=== PATIENT | male | born 1950 | race Caucasian/White ===

== ENCOUNTER 2017-01-08 10:30 | Outpatient (CLI) | payer BC ==
[2017-01-08 14:05] LABS: #Eosinphils 0.1 thou/uL (0.0-0.7); #Lymphocytes 1.5 thou/uL (1.20-3.40); #Monocytes 0.5 thou/uL (0.11-0.59); #Neutrophils 3.1 thou/uL (1.40-6.50); %Basophils 0.5 % (0.0-1.0); %Eosinophils 2.1 % (0.0-10.0); %Lymphocytes 28.3 % (21.0-51.0); %Monocytes 9.9 % (0.0-10.0); Hematocrit 42.3 % (42.0-52.0); Mean Platelet Volume 7.1 fL (7.4-10.4); Red Blood Cell (RBC) Count 4.49 mill/uL (4.70-6.10); White Blood Cell (WBC) Count 5.2 thou/uL (4.8-10.8)
[2017-01-08 14:13] LABS: PTT 27.1 SEC (22.9-36.1); Prothrombin Time 13.7 SEC (12.0-14.7)
[2017-01-08 14:32] LABS: ALT (SGPT) 33 U/L (8-55); AST (SGOT) 24 U/L (5-34); Alkaline Phosphatase 94 U/L (40-150); Anion Gap 14 mmol/L (10-20); BUN (Urea Nitrogen) 10 mg/dL (8.4-25.7); Bilirubin, Total 0.7 mg/dL (0.2-1.2); Calc. Creatinine Clearance 0 mL/min (70-130); Calcium 9.2 mg/dL (7.8-10.44); Carbon Dioxide 24 mmol/L (23-31); Chloride 103 mmol/L (98-107); Estimated GFR-MDRD Greater than 90; Globulin 3.1 g/dL (2.4-3.5); Protein, Total 7.4 g/dL (5.8-8.1)
== END 2017-01-08 10:31 | disposition home or self-care (01) ==
LOC: LABBT 10:30
PROVIDERS: ATTEND Surgery
DX: Z01.818 Encounter for other preprocedural examination (principal); K42.9 Umbilical hernia without obstruction or gangrene; N63.10 Unspecified lump in the right breast, unspecified quadrant
CPT/HCPCS: 80053; 85025; 85610; 85730; 93005; 93010

== ENCOUNTER 2017-04-27 08:24 | Emergency (ER) | payer BC | END 2017-04-27 09:51 | disposition home or self-care (01) | LOC: ERS 08:24 | DX: K20.9 Esophagitis, unspecified (principal); T43.225A Adverse effect of selective serotonin reuptake inhibitors, initial encounter; I10 Essential (primary) hypertension; F41.9 Anxiety disorder, unspecified; F43.10 Post-traumatic stress disorder, unspecified; Z79.82 Long term (current) use of aspirin; Z79.899 Other long term (current) drug therapy | CPT/HCPCS: 99282 ==

== ENCOUNTER 2018-03-25 06:45 | Outpatient (CLI) | payer BC ==
[2018-03-25 13:06] LABS: Hemoglobin 13.9 g/dL (14.0-18.0); Mean Corpuscular HGB CONC 35.2 g/dL (32.0-36.0); Mean Corpuscular Hemoglobin 33.6 pg (27.0-31.0); Mean Corpuscular Volume 95.4 fL (78.0-98.0); Mean Platelet Volume 7.1 fL (7.4-10.4); Platelet Count 229 thou/uL (130-400); RBC Distribution Width 11.1 % (11.5-14.5); Red Blood Cell (RBC) Count 4.14 mill/uL (4.70-6.10)
[2018-03-25 13:12] LABS: Platelet Count 229 thou/uL (130-400)
[2018-03-25 13:21] LABS: Anion Gap 14 mmol/L (10-20); BUN (Urea Nitrogen) 22 mg/dL (8.4-25.7); Calc. Creatinine Clearance 0 mL/min (70-130); Calcium 9.3 mg/dL (7.8-10.44); Carbon Dioxide 23 mmol/L (23-31); Chloride 105 mmol/L (98-107); Estimated GFR-MDRD Greater than 90; Glucose 99 mg/dL (80-115); Potassium 4.5 mmol/L (3.5-5.1); Sodium 137 mmol/L (136-145)
== END 2018-03-25 06:46 | disposition home or self-care (01) ==
LOC: LABBT 06:45
PROVIDERS: ATTEND Urology
DX: Z01.812 Encounter for preprocedural laboratory examination (principal)
CPT/HCPCS: 80048; 85027; 85576

== ENCOUNTER 2018-03-26 06:11 | Day surgery (SDC) | payer BC ==
[2018-03-25 12:10] VITALS: BMI 36.1
[2018-03-26] MEDS ORDERED: Fentanyl 100 MCG/2 ML VIAL ONE ×2 (06:48→10:05)
[2018-03-26] MEDS ORDERED: Famotidine/PF 20 mg/2ml Vial ONE (06:48)
[2018-03-26] MEDS ORDERED: Iothalamate Meglumine 60% 50 ML VIAL FS ONE (06:55)
--- NOTE | 2018-03-26 07:53 | RAD ---
KUB: HISTORY: Abdominal pain. COMPARISON: 03/27/2018 study. FINDINGS: The bowel gas pattern appears nonobstructive. Calcifications within the pelvis appear stable. A maria isabel cific density just to the right of the L4 vertebral body is seen which could represent a ureteral maria isabel culus. Slightly lower in position on the previous exam. IMPRESSION: Calculus directly to the right of the mid portion of the L4 vertebral slightly lower in position than on the prior exam, possibly a ureteral calculus. POS: BAKARI
[2018-03-26] MEDS ORDERED: Ketorolac Tromethamine 30 MG/ML VIAL ONE ×2 (10:04→15:35)
--- NOTE | 2018-03-26 12:34 | OP ---
DATE OF PROCEDURE: 03/26/2018 PREOPERATIVE DIAGNOSIS: Right ureteral stone. POSTOPERATIVE DIAGNOSIS: Right ureteral stone. PROCEDURES PERFORMED: Right extracorporeal shock wave lithotripsy, cysto,and right retrograde. ANESTHETIC: General. EBL: Not recorded. FINDINGS: There was a 5 to 6 mm right midureteral stone treated with 2000 shocks at level 6. It appeared to fragment well and was treated from anterior direction as we could not get it to be placed in treatment focal point from a posterior direction. The stone did appear to fragment well the number of fragments at the site, so because we treated this and had partial fragmentation number of weeks ago and he had passed the larger fragment, we went ahead and placed him and did a cysto and retrograde. There were no sizable fragments related remaining when we shot contrast by it. They just all spread out and he had no evidence of obstruction across this and we could see some small fragments actually effluxing out the right ureter, so a stent was not placed. DESCRIPTION OF PROCEDURE: After obtaining written and verbal consent from the patient after receiving IV antibiotics, Ancef, he was taken to the operating suite. He was placed in supine position on the treatment table. PlexiPulses placed in his lower extremities and turned on. He was given a general anesthetic and oral obturator intubation. The stone, which was seen on his preoperative KUB was seen with the fluoroscopy unit. We initially attempted to treat him posteriorly, but we could not get the stone in treatment focal point, so we flipped the head and treated from the front. The stones easily placed in treatment focal point. Shockwave therapy was commenced and brought up to 6 KV with being a ureteral stone. No pause was given. After the stone did appear to start fragmenting after a few 100 shocks and by about 3000 shocks, there was really just a number of small, what appeared to be small fragments remaining. Because this was a retreatment and we wanted to be sure that we had done a good job with this and had a stent that was needed for ureteroscopy. We went ahead and placed in the dorsal lithotomy position, sterilely prepped and draped for cystoscopy. This was performed with a 22-New Zealander sheath. It was passed well lubricated under direct vision through the midurethra and into the urinary bladder with a 30 degree lens and video camera and monitor. The bladder had some blood effluxing from the right ureteral orifice that was filled and emptied a couple of times. A 5-New Zealander Pollack catheter was placed in the right ureteral orifice and under fluoroscopic guidance placed just below, where the stone fragments were. We injected contrast, which went by this easily and spread these out over probably 3 or 4 cm area. The contrast quickly came back across this without obstruction. We did this 2 or 3 times, removed the open-ended catheter and then watching the contrast, has out the distal ureter with some stone fragments in it without any evidence of obstruction. For this reason, the stent was not placed. The bladder was drained. The instruments were removed. He was taken out of the dorsal lithotomy position. He was awakened and extubated and taken by stephen to the recovery room. Job ID: [id number]
[2018-03-26] MEDS ORDERED: Lidocaine 1% PF 5 ML VIAL ONE (15:35)
[2018-03-26] MEDS ORDERED: PHENYLEPHRINE-NS 100 MCG/ML 10 ML SYRINGE ONE (15:35)
[2018-03-26] MEDS ORDERED: Ondansetron PF 4 MG/2 ML Vial ONE (15:35)
[2018-03-26] MEDS ORDERED: ePHEDrine/0.9% NaCl/PF SYRINGE 50 mg/10 ml ONE (15:35)
[2018-03-26] MEDS ORDERED: PROPOFOL 200 MG/20 ML VIAL ONE (15:35)
== END 2018-03-26 11:10 | disposition home or self-care (01) ==
LOC: SDC 06:11
PROVIDERS: ATTEND Urology
PROC: BT1D1ZZ Fluoroscopy of Right Kidney, Ureter and Bladder using Low Osmolar Contrast (ICD-10-PCS; principal; 2018-03-26)
PROC: 0TJB8ZZ Inspection of Bladder, Via Natural or Artificial Opening Endoscopic (ICD-10-PCS; principal; 2018-03-26)
PROC: 0TF6XZZ Fragmentation in Right Ureter, External Approach (ICD-10-PCS; principal; 2018-03-26)
DX: N20.1 Calculus of ureter (principal); E20.9 Hypoparathyroidism, unspecified; F41.9 Anxiety disorder, unspecified; K21.9 Gastro-esophageal reflux disease without esophagitis; I10 Essential (primary) hypertension; Z86.73 Personal history of transient ischemic attack (TIA), and cerebral infarction without residual deficits; Z79.82 Long term (current) use of aspirin; Z79.899 Other long term (current) drug therapy
CPT/HCPCS: 74018; C1758; J0131; J1885; J2001; J2405; J2704; J3010; Q9961; S0028

== ENCOUNTER 2018-08-21 01:51 | Outpatient (CLI) | payer MEDICARE, BC ==
[2018-08-21 16:09] LABS: #Eosinphils 0.1 thou/uL (0.0-0.7); #Lymphocytes 1.5 thou/uL (1.20-3.40); #Monocytes 0.6 thou/uL (0.11-0.59); #Neutrophils 3.2 thou/uL (1.40-6.50); %Basophils 0.6 % (0.0-1.0); %Lymphocytes 28.4 % (21.0-51.0); %Monocytes 10.2 % (0.0-10.0); %Neutrophils 58.7 % (42.0-75.0); Hemoglobin 13.2 g/dL (14.0-18.0); Mean Corpuscular HGB CONC 33.7 g/dL (32.0-36.0); Mean Corpuscular Volume 94.9 fL (78.0-98.0); Platelet Count 273 thou/uL (130-400); RBC Distribution Width 11.7 % (11.5-14.5); Red Blood Cell (RBC) Count 4.13 mill/uL (4.70-6.10); White Blood Cell (WBC) Count 5.4 thou/uL (4.8-10.8)
[2018-08-21 16:15] LABS: Prothrombin Time 13.4 SEC (12.0-14.7)
[2018-08-21 16:33] LABS: Anion Gap 13 mmol/L (10-20); BUN (Urea Nitrogen) 20 mg/dL (8.4-25.7); Calc. Creatinine Clearance 0 mL/min (70-130); Calcium 9.4 mg/dL (7.8-10.44); Carbon Dioxide 25 mmol/L (23-31); Chloride 102 mmol/L (98-107); Estimated GFR-MDRD Greater than 90; Glucose 116 mg/dL (80-115); Potassium 3.8 mmol/L (3.5-5.1); Sodium 136 mmol/L (136-145)
--- NOTE | 2018-08-22 21:25 | EKG ---
Test Reason : Blood Pressure : / mmHG Vent. Rate : 065 BPM Atrial Rate : 065 BPM P-R Int : 180 ms QRS Dur : 126 ms QT Int : 440 ms P-R-T Axes : 050 -57 003 degrees QTc Int : 457 ms Normal sinus rhythm Right bundle branch block Left anterior fascicular block Bifascicular block Left ventricular hypertrophy with QRS widening Cannot rule out Septal infarct , age undetermined Abnormal ECG When compared with ECG of 22-SEP-2016 09:55, Minimal criteria for Septal infarct are now Present Confirmed by Grisel BUTT ([id number]) on 08/22/2018 9:24:34 PM Referred By: TREY Confirmed By:Grisel BUTT
== END 2018-08-21 01:52 | disposition home or self-care (01) ==
LOC: LABBT 01:51
PROVIDERS: ATTEND Orthopaedic Surgery
DX: Z01.818 Encounter for other preprocedural examination (principal); M16.11 Unilateral primary osteoarthritis, right hip
CPT/HCPCS: 80048; 85025; 85610; 86850; 86900; 86901; 87081; 93005; 93010

== ENCOUNTER 2018-08-21 15:15 | Inpatient (IN) | payer MEDICARE, BC ==
--- NOTE | 2018-08-21 09:31 | HP ---
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 His groin pain, which radiates towards his knee and leg. He has pain with change of position with walking. He also has some low back pain and has had some relief with injections of his low back. He also obtained significant improvement after injection of his hip joint by Dr. Sandoval. His back pain is improved, but he continues to have progressive right hip pain, which is interfering with day-to-day activities including walking, getting dressed, and sleeping. A partial relief with anti-inflammatory medications. PAST MEDICAL HISTORY: The patient has history of a TIA in 2012. He has had previous total knee replacement. Approximately 3 weeks ago, the patient fell and sustained a left 5th metacarpal fracture, treated with a splint. He also has a history of hypertension, thyroid replacement, and gout. CURRENT MEDICATIONS: Include; 1. Levothyroxine. 2. Amlodipine. 3. Low-dose aspirin. 4. Lipitor. 5. Fluoxetine. 6. Lisinopril. 7. Omeprazole. 8. Prazosin. 9. Spironolactone. 10. Flomax. 11. Tylenol with Codeine. ALLERGIES: HE HAS NO KNOWN ALLERGIES. FAMILY HISTORY: Otherwise, unremarkable. SOCIAL HISTORY: Otherwise, unremarkable. REVIEW OF SYSTEMS: Otherwise, unremarkable. PHYSICAL EXAMINATION: GENERAL: Reveals a healthy male. HEENT: Unremarkable. NECK: Supple. CHEST: Clear. HEART: Regular rate and rhythm. ABDOMEN: Soft and nontender. PELVIC: Deferred. RECTAL: Deferred. GENITAL: Deferred. EXTREMITIES: Pertinent findings related to the right hip, his leg lengths were equal. He has tenderness over the anterior hip, some tenderness over the posterior hip and sciatic notch. There is decreased range of motion of the right hip and groin pain with internal rotation of the hip. He has a slight right antalgic gait. He walks well with a cane. NEUROVASCULAR: Intact. DIAGNOSTIC STUDIES: X-rays of the right hip reveal severe DJD in narrowing with essentially no joint space remaining and definite progression from previous x-rays. MRI scan of the right hip reveals severe degenerative arthritis. Previous MRI scan of the lumbar spine reveals diffuse degenerative changes and jhnbozcd-ka-uzinus spinal stenosis at L4-L5 and tkhw-um-kgejilyx changes at L5-S1. IMPRESSION: 1. Degenerative arthritis, right hip. 2. Lumbar spondylosis. 3. History of hypertension. 4. History of thyroid replacement. 5. Previous left total knee replacement. PLAN: Right total hip replacement. The nature of the surgery, length of recovery, and potential complications such as infection, loss of motion, incomplete relief, neurovascular injury, thromboembolic phenomena, leg-length discrepancy, possible transfusion, and need for revision have been discussed in detail. Job ID: [id number]
[2018-08-21 13:21] VITALS: BMI 39.9
[2018-08-27] MEDS ORDERED: Midazolam HCl 2 mg/2 ml Vial ONE (07:39)
[2018-08-27] MEDS ORDERED: Fentanyl 100 MCG/2 ML VIAL ONE ×3 (07:39→12:35)
[2018-08-27] MEDS ORDERED: Tranexamic Acid 1,000 MG/10 ML VIAL ONE ×2 (07:42→12:46)
[2018-08-27] MEDS ORDERED: Sodium Chloride 0.9% 100 ML ONE (07:43)
[2018-08-27] MEDS ORDERED: Vancomycin HCl 1.5 GM in Sodium Chloride 0.9% 250 ML 300 ML IVPB SCH ×2 (08:00→21:00)
[2018-08-27] MEDS ORDERED: CEFAZOLIN 2 GM in Premix Bag 1 BAG IVPB SCH (08:00)
[2018-08-27] MEDS ORDERED: Tranexamic Acid 1,000 MG in Sodium Chloride 0.9% 100 ML IVPB SCH ×3 (08:00→13:50)
[2018-08-27] MEDS ORDERED: Acetaminophen 500 MG TAB PO PRN ×2 (09:29→14:44)
[2018-08-27] MEDS ORDERED: Zolpidem Tartrate 5 MG TAB PO PRN ×3 (09:30→14:45)
[2018-08-27] MEDS ORDERED: HYDROcodone/Acetaminophen 5/325 mg Tablet PO PRN ×4 (09:30→14:45)
[2018-08-27] MEDS ORDERED: traMADol HCl 50 MG TAB PO PRN ×5 (09:30→14:45)
[2018-08-27] MEDS ORDERED: Hydrocerin (Eucerin) Cream 120 gm Jar TOP PRN ×2 (09:30→14:45)
[2018-08-27] MEDS ORDERED: diphenhydrAMINE 25 MG CAP PO PRN ×3 (09:30→14:45)
[2018-08-27] MEDS ORDERED: Ondansetron PF 4 MG/2 ML Vial IVP PRN ×3 (09:30→14:45)
[2018-08-27] MEDS ORDERED: Ketorolac Tromethamine 30 MG/ML VIAL IVP PRN ×2 (09:30→14:45)
[2018-08-27] MEDS ORDERED: Naloxone HCl 0.4 mg/ml Vial IV PRN ×2 (09:30→14:45)
[2018-08-27] MEDS ORDERED: fentaNYL Citrate/PF 500 MCG, Bupivacaine 10 ML in Sodium Chloride 0.9% 80 ML EPIDURAL SCH ×2 (09:30→14:45)
[2018-08-27] MEDS ORDERED: Naloxone HCl 0.4 mg/ml Vial IVP PRN ×2 (09:30→14:45)
[2018-08-27] MEDS ORDERED: Bupivacaine 0.25% 10 ML VIAL EPIDURAL PRN ×2 (09:30→14:45)
[2018-08-27] MEDS ORDERED: diphenhydrAMINE 50 MG/ML VIAL IVP PRN ×2 (09:30→14:45)
[2018-08-27] MEDS ORDERED: Promethazine HCl 25 MG/ML VIAL IM PRN ×2 (09:30→14:45)
[2018-08-27] MEDS ORDERED: diphenhydrAMINE 50 MG/ML VIAL IM PRN ×2 (09:30→14:45)
[2018-08-27] MEDS ORDERED: Promethazine HCl 25 MG SUPP PR PRN ×2 (09:30→14:45)
[2018-08-27] MEDS ORDERED: Bupivacaine/Epinephrine 0.25% 30 ML VIAL ONE (09:33)
--- NOTE | 2018-08-27 12:10 | OP ---
DATE OF PROCEDURE: 08/27/2018 This is Gerald Ndiaye PA-C dictating a report for Og Agosto MD. PREOPERATIVE DIAGNOSIS: End-stage bicompartmental osteoarthritis, right hip. POSTOPERATIVE DIAGNOSIS: End-stage bicompartmental osteoarthritis, right hip. PROCEDURE PERFORMED: Press-fit right total hip arthroplasty. SURGEON: Og Agosto MD SUPERVISOR STRIPPING: Gerald Ndiyae PA-C. ANESTHESIA: General via endotracheal tube augmented with indwelling epidural. COMPONENTS USED: [employer] Accolade 11, size 4 press-fit hip stem with a size 54 mm Trident PSL press-fit acetabular shell, 36 mm 10-degree polyethylene fixed-bearing insert, and a ceramic V40 femoral head with a neutral offset. FINDINGS: End-stage severe degenerative bicompartmental disease, lxzx-hd-owdo arthrosis, periarticular osteophyte formation, large serous effusion, hypertrophic synovium and capsule. ESTIMATED BLOOD LOSS: 300. INPUT: 900 mL of LR. OUTPUT: 200 mL of clear yellow urine. DRAINS: None. SPECIMENS: None. COMPLICATIONS: None. COUNTS: Correct. INDICATION FOR SURGERY: Carlos is a 67-year-old white male, who has had progressive right hip, groin, and thigh pain and problem with standing and walking for the last 5 to 7 years. He has failed conservative management and elected to proceed with total hip arthroplasty as definitive treatment of his pain. PROCEDURE IN DETAIL: After informed consent was obtained in the preoperative holding area, the patient was taken to the operative suite where general anesthesia was induced. The patient was then positioned in the lateral decubitus position. The hip was then prepped and draped in usual sterile fashion. The patient received preoperative antibiotics. Prior to incision, time-out was called and all members of the surgical team agreed upon site, surgeon, and patient. After this, a longitudinal incision was made directly over the trochanter, noted by palpation extending 2 fingerbreadths above and below the trochanter. The deeper subcutaneous layer was undermined with Bovie electrocautery. The iliotibial band was encountered and incised sharply and the plane below this was developed bluntly. A Charnley retractor was placed to hold this opened. The lateral aspect of the trochanter and the abductor muscles were encountered and then reflected anteriorly off the trochanter using Bovie electrocautery. Once this was completed, the anterior capsule was then encountered and identified and copious capsulotomy was carried out, exposing the femoral neck and head. Dislocation maneuver was then performed and an in situ provisional neck cut was then made using the oscillating saw. Attention was then turned to acetabular preparation. Sequential reaming was carried out up to the appropriate diameter and a trial was then malleted into place with good firm resistance and no pullout. The permanent acetabular shell was then malleted squarely into place, as was the appropriate liner. Once completed, the wound was copiously irrigated and attention was then turned to femoral preparation. Flexion and external rotation were performed of the exposed thigh and femoral elevators were then placed at the proximal aspect of the wound. Canal finder was used to establish the length of the canal and sequential reaming was carried out, followed by broaching. Once the appropriate stability was established with the trial broaches with flexion, extension and rotational stability, we did trial with neutral and 2 mm offset incremental necks. Once the appropriate size was decided upon, with good stability noted with flexion, extension, internal and external rotation and shuck being negative, we removed the femoral trial broach and malletted into place the permanent prosthesis with good firm fit, which was also stable to rotation. Again, the hip felt very stable to flexion, extension, internal and external rotation. Leg lengths appeared near anatomic clinically and we were quite happy with prosthesis placement. Copious irrigation was then carried out through the entirety of the wound. Primary closure of the abductors was accomplished with interrupted #2 Vicryl [id number]-yt-lwhyh stitches and the IT band was then closed with interrupted #2 Vicryl, oversewn with a #2 running barbed Quill stitch. Subcutaneous fascia was closed with running barbed Quill stitch and a subcuticular Monocryl barbed Quill stitch was used for skin closure and augmented with skin cement. A sterile dressing was applied. The procedure was terminated without any complication. All counts were correct. The patient was awakened in the operative suite and taken to the recovery room in stable condition. Job ID: [id number]
[2018-08-27] MEDS ORDERED: Promethazine HCl 25 MG/ML VIAL SLOW IVP PRN (13:50)
[2018-08-27] MEDS ORDERED: Fentanyl 100 MCG/2 ML VIAL SLOW IVP PRN ×2 (13:50)
[2018-08-27] MEDS ORDERED: Acetaminophen 325 MG TAB PO PRN (13:50)
[2018-08-27] MEDS ORDERED: HYDROcodone/Acetaminophen 10/325 mg Tablet PO PRN ×2 (13:50)
--- NOTE | 2018-08-27 14:15 | RAD ---
RIGHT HIP TWO VIEWS: 08/27/18 HISTORY: Right hip replacement, osteoarthritis of the right knee. FINDINGS/IMPRESSION: Two spot fluoroscopic intraoperative images of the right hip demonstrates postop changes of total hip arthroplasty in good position and alignment. POS: BAKARI
[2018-08-27] MEDS ORDERED: Dexamethasone 20 MG/5 ML VIAL ONE (15:05)
[2018-08-27] MEDS ORDERED: Glycopyrrolate 0.2 MG/ML 5 ML SYRINGE ONE (15:05)
[2018-08-27] MEDS ORDERED: Ondansetron PF 4 MG/2 ML Vial ONE (15:05)
[2018-08-27] MEDS ORDERED: ePHEDrine 50 MG/ML VIAL ONE (15:05)
[2018-08-27] MEDS ORDERED: Lidocaine 1% PF 5 ML VIAL ONE (15:05)
[2018-08-27] MEDS ORDERED: PROPOFOL 200 MG/20 ML VIAL ONE (15:05)
[2018-08-27] MEDS ORDERED: Rocuronium Bromide 10 MG/ML (10ML VIAL) ONE (15:05)
[2018-08-27] MEDS: Sodium Chloride 0.9% 1,000 ML IV SCH (17:09)
[2018-08-27] MEDS: CEFAZOLIN 2 GM in Premix Bag 1 BAG IVPB SCH (17:09)
[2018-08-27] MEDS ORDERED: Ketorolac Tromethamine 30 MG/ML VIAL IVP SCH (18:00)
[2018-08-27] MEDS ORDERED: Acetaminophen 500 MG TAB ONE (22:25)
[2018-08-28] MEDS ORDERED: traMADol HCl 50 MG TAB ONE (03:48)
[2018-08-28] MEDS ORDERED: Levothyroxine Sodium 50 MCG TAB ONE (05:14)
--- NOTE | 2018-08-28 08:27 | CON ---
DATE OF CONSULTATION: 08/27/2018 REASON FOR CONSULTATION: Medical management. TIME OF EVALUATION: 8:30 pm. HISTORY OF PRESENT ILLNESS: Mr. Weinstein is a very pleasant 67-year-old male with past medical history significant for severe osteoarthritis, hypertension, hypothyroidism, history of TIA, who presented to the hospital for elective right total hip arthroplasty with Dr. Agosto. He underwent successful procedure today and is seen postoperatively up on the floor. Hospitalist Service has been consulted for medical management of the patient. The patient has no complaints at this time. He denies chest pain or shortness of breath. He has no postoperative pain. He has already ambulated 290 feet with physical therapy. No complaints at this time. REVIEW OF SYSTEMS: A 12-point review of systems performed and is negative except that stated above. ALLERGIES: NO KNOWN DRUG ALLERGIES. HOME MEDICATIONS: 1. Amlodipine 10 mg one tablet daily. 2. Aspirin 325 mg tablet one tablet daily. 3. Atorvastatin 20 mg tablet, half tablet q.p.m. 4. Diclofenac 1% topical gel p.r.n. for joint pain. 5. Fluoxetine 20 mg capsule 3 capsules daily. 6. Levothyroxine 0.05 mg tablet one tablet daily. 7. Omeprazole 20 mg capsule one capsule daily prior to meal. 8. Prazosin 2 mg capsule one capsule by mouth at bedtime p.r.n. 9. Spironolactone 25 mg tablet one tablet daily. 10. Tamsulosin 0.4 mg capsule one capsule daily. 11. Trazodone 50 mg q.p.m. p.r.n. as needed for sleep. PAST MEDICAL HISTORY: Nephrolithiasis, status post lithotripsy. Hyperparathyroidism, status post resection. Gout, hypertension, anxiety, depression. Osteoarthritis, status post left total knee replacement. PAST SURGICAL HISTORY: Cervical spinal fusion, hernia repair x2, breast biopsy on 01/10/2017, total right hip with Dr. Agosto today. FAMILY HISTORY: Noncontributory. SOCIAL HISTORY: The patient is a nonsmoker. He denies any alcohol or drug use. 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 PHYSICAL EXAMINATION: VITAL SIGNS: Temperature 99.1, pulse 101, respirations 18, O2 saturation 94% on room air, blood pressure is 124/76. GENERAL: The patient is a moderately obese male, resting comfortably in bed, in no acute distress. HEENT: Head is atraumatic and normocephalic. Mucous membranes are moist. NECK: Supple. Trachea is midline. No obvious JVD. CV: S1 and S2. No appreciable murmurs, rubs, or gallops. Regular rhythm. LUNGS: Regular respiratory rate and pattern, overall clear to auscultation bilaterally. ABDOMEN: Positive bowel sounds. Obese, soft, no masses. EXTREMITIES: Trace edema bilaterally. NEUROLOGIC: Cranial nerves 2 through 12 are grossly intact. The patient is nonfocal. MUSCULOSKELETAL: The patient's incision is dressed, dressing is dry. The patient has no obvious oozing. He can move both extremities, but has pain with movement . LABORATORY DATA: White blood cell count 5.4, hemoglobin 13.3, hematocrit 39.3, platelet count 603. Urinalysis negative. Sodium 136, potassium 3.8, chloride 102, carbon dioxide 25, anion gap 13, creatinine 0.8. ASSESSMENT: 1. Status post right total hip arthroplasty with Dr. Agosto. 2. Hypertension. 3. Hypothyroidism. 4. BPH. 5. Anxiety and depression. 6. Chronic peripheral edema/normal EF. PLAN: At this time, we will continue the patient's home medications. We will monitor his blood pressure closely. Continue prophylactic antibiotics per Dr. Agosto. Continue aggressive physical therapy. Continue supportive care and antiemetics as needed. We will continue to follow. Job ID: [id number]
[2018-08-28] MEDS ORDERED: Loperamide HCl 2 MG CAP PO PRN (08:38)
[2018-08-28] MEDS ORDERED: Cepastat Lozenges 1 LOZ PO PRN (08:38)
[2018-08-28] MEDS ORDERED: Calcium Carbonate 500 MG ChewTAB PO PRN (08:38)
[2018-08-28] MEDS ORDERED: Sodium Chloride 0.65% Nasal 44 ML BOT EA NARE PRN (08:38)
[2018-08-28] MEDS ORDERED: hydrALAZINE 20 MG/ML VIAL SLOW IVP PRN (08:38)
[2018-08-28] MEDS ORDERED: Diabetic Tussin 200 MG/10 ML UDCUP PO PRN (08:38)
[2018-08-28] MEDS ORDERED: Bisacodyl 10 MG SUPP PR PRN (08:38)
[2018-08-28] MEDS ORDERED: Ondansetron ODT 4 MG TAB SL PRN (08:38)
[2018-08-28] MEDS ORDERED: Enoxaparin Sodium 40 MG/0.4 ML SYRINGE SC SCH (09:00)
[2018-08-28] MEDS: Senokot S 8.6-50 MG TAB PO SCH ×3 (09:14→21:26)
[2018-08-28] MEDS: Ferrous Gluconate 324 MG TAB PO SCH ×3 (09:14→21:26)
[2018-08-28] MEDS: Aspirin 81 mg Enteric Coated Tablet PO SCH ×3 (09:14→21:27)
[2018-08-28] MEDS: Lisinopril 20 MG TAB PO SCH (09:22)
[2018-08-28] MEDS: Multivitamin W/ Minerals 1 TAB PO SCH (09:22)
[2018-08-28] MEDS: Amlodipine 10 MG TAB PO SCH (09:23)
[2018-08-28] MEDS: Tamsulosin HCl 0.4 MG CAP PO SCH (09:23)
[2018-08-28] MEDS: DULoxetine 30 MG CAP PO SCH (09:23)
--- NOTE | 2018-08-28 11:39 | PDOC.PN ---
- Subjective Encounter Start Date: 08/28/18 Encounter Start Time: 08:00 -: old records requested/rev Patient seen and examined. No new complaints. No overnight events his pain controlled, he has epidural in place, last night o2 sta was low, so oxygen started, he denies cough, chest pain - Objective Resuscitation Status - Order Detail: 08/28/18 08:37 Resuscitation Status Routine Resuscitation Status: FULL: Full Resuscitation MAR Reviewed: Yes Vital Signs & Weight: Vital Signs (12 hours) Pulse BP 08/28/18 09:23 93 141/73 H 08/28/18 09:22 141/73 H Weight Weight 247 lb Additional Labs: old labs reviewed Phys Exam - Physical Examination Constitutional: NAD HEENT: PERRLA, moist MMs, sclera anicteric Neck: no JVD, supple Respiratory: no wheezing, no rales, no rhonchi Cardiovascular: RRR, no significant murmur, no rub Gastrointestinal: soft, non-tender, no distention, positive bowel sounds Musculoskeletal: no edema, pulses present Neurological: non-focal, normal sensation, moves all 4 limbs Lymphatic: no nodes Psychiatric: normal affect, A&O x 3 Skin: no rash, normal turgor Dx/Plan (1) Status post right hip replacement Code(s): Z96.641 - PRESENCE OF RIGHT ARTIFICIAL HIP JOINT Status: Acute (2) Anxiety and depression Code(s): F41.9 - ANXIETY DISORDER, UNSPECIFIED; F32.9 - MAJOR DEPRESSIVE DISORDER, SINGLE EPISODE, UNSPECIFIED Status: Chronic (3) Dyslipidemia Code(s): E78.5 - HYPERLIPIDEMIA, UNSPECIFIED Status: Chronic (4) Hypertension Code(s): I10 - ESSENTIAL (PRIMARY) HYPERTENSION Status: Chronic (5) Hypothyroidism Code(s): E03.9 - HYPOTHYROIDISM, UNSPECIFIED Status: Chronic (6) Obesity (BMI 30-39.9) Code(s): E66.9 - OBESITY, UNSPECIFIED Status: Chronic (7) BPH (benign prostatic hyperplasia) Code(s): N40.0 - BENIGN PROSTATIC HYPERPLASIA WITHOUT LOWER URINRY TRACT SYMP Status: Chronic (8) GERD (gastroesophageal reflux disease) Code(s): K21.9 - GASTRO-ESOPHAGEAL REFLUX DISEASE WITHOUT ESOPHAGITIS Status: Chronic (9) Hypothyroidism Code(s): E03.9 - HYPOTHYROIDISM, UNSPECIFIED Status: Chronic - Plan cont current plan of care, PT/OT * continue aspirin for DVT prophylaxis * home medication has been started * will hold BP meds for SBP <120 * code status- full code * medication reviewed as below * symptomatic treatment * will monitor oxygen saturation * epidural as per anesthesia. Review of Systems - Review of Systems ENT: negative: Ear Pain, Ear Discharge, Nose Pain, Nose Discharge, Nose Congestion, Mouth Pain, Mouth Swelling, Throat Pain, Throat Swelling, Other Respiratory: negative: Cough, Dry, Shortness of Breath, Hemoptysis, SOB with Excertion, Pleuritic Pain, Sputum, Wheezing Cardiovascular: negative: chest pain, palpitations, orthopnea, paroxysmal nocturnal dyspnea, edema, light headedness, other Gastrointestinal: negative: Nausea, Vomiting, Abdominal Pain, Diarrhea, Constipation, Melena, Hematochezia, Other Genitourinary: negative: Dysuria, Frequency, Incontinence, Hematuria, Retention , Other Musculoskeletal: negative: Neck Pain, Shoulder Pain, Arm Pain, Back Pain, Hand Pain, Leg Pain, Foot Pain, Other - Medications/Allergies Allergies/Adverse Reactions: Allergies Allergy/AdvReac Type Severity Reaction Status Date / Time No Known Drug Allergies Allergy Verified 03/25/18 12:10 Medications: Current Medications Acetaminophen (Tylenol) 1,000 mg PO Q6H PRN PRN Reason: FEVER AND PAIN Hydrocodone Bitart/Acetaminophen ([place] 5/325) 1 tab PO Q4H PRN PRN Reason: Mild Pain 1-3 Hydrocodone Bitart/Acetaminophen ([place] 5/325) 2 tab PO Q4H PRN PRN Reason: For Moderate Pain 4-6 Amlodipine Besylate (Norvasc) 10 mg PO DAILY [facility] Last Admin: 08/28/18 09:23 Dose: 10 mg Aspirin (Ecotrin) 81 mg PO BID [facility] Last Admin: 08/28/18 09:14 Dose: 81 mg Atorvastatin Calcium (Lipitor) 10 mg PO HS [facility] Bisacodyl (Dulcolax) 10 mg OK DAILYPRN PRN PRN Reason: Constipation Calcium Carbonate (Tums) 1,000 mg PO Q4H PRN PRN Reason: Heartburn or Indigestion Diphenhydramine HCl (Benadryl) 25 mg PO Q3H PRN PRN Reason: Itching Diphenhydramine HCl (Benadryl) 25 mg IM Q3H PRN PRN Reason: Itching Diphenhydramine HCl (Benadryl) 25 mg IVP Q3H PRN PRN Reason: Itching Duloxetine HCl (Cymbalta) 30 mg PO DAILY [facility] Last Admin: 08/28/18 09:23 Dose: 30 mg Emollient Cream (Hydrocerin Cream) 0 gm TOP PRN PRN PRN Reason: Itching Enoxaparin Sodium (Lovenox) 40 mg SC 2100 [facility] Ferrous Gluconate (Fergon) 324 mg PO BID [facility] Last Admin: 08/28/18 09:14 Dose: 324 mg Guaifenesin (Robitussin Sf) 200 mg PO Q4H PRN PRN Reason: Cough Hydralazine HCl (Apresoline) 10 mg SLOW IVP Q4H PRN PRN Reason: SBP > 180 and HR < 70 Sodium Chloride (Normal Saline 0.9%) 1,000 mls @ 100 mls/hr IV .Q10H [facility] Last Admin: 08/27/18 17:09 Dose: 1,000 mls Fentanyl Citrate 500 mcg/Bupivacaine HCl 10 ml/ Sodium Chloride 100 mls @ 7.5 mls/hr EPIDURAL INF [facility] Iron/Minerals/Multivitamins (Theragran M) 1 tab PO DAILY [facility] Last Admin: 08/28/18 09:22 Dose: 1 tab Ketorolac Tromethamine (Toradol) 15 mg IVP Q6H PRN PRN Reason: Moderate Pain (4-6) Stop: 08/30/18 14:46 Levothyroxine Sodium (Synthroid) 50 mcg PO 0600 [facility] Lisinopril (Zestril) 40 mg PO DAILY [facility] Last Admin: 08/28/18 09:22 Dose: 40 mg Loperamide HCl (Imodium) 2 mg PO PRN PRN PRN Reason: Diarrhea/Loose Stools Miscellaneous Information (Communication Order-Pharmacy) 1 each FS ASDIR [facility] Naloxone HCl (Narcan) 0.2 mg IV Q5MIN PRN PRN Reason: RR <=8 OR OBTUNDED/UNAROUSABLE Naloxone HCl (Narcan) 0.1 mg IVP Q15MIN PRN PRN Reason: URINARY RETENTION Ondansetron HCl (Zofran) 4 mg IVP Q6H PRN PRN Reason: Nausea/Vomiting Ondansetron HCl (Zofran Odt) 4 mg SL Q6H PRN PRN Reason: Nausea/Vomiting Pantoprazole Sodium (Protonix) 40 mg PO DAILY [facility] Last Admin: 08/28/18 09:23 Dose: 40 mg Prazosin HCl (Minipress) 2 mg PO HS [facility] Promethazine HCl (Phenergan) 12.5 mg IM Q4H PRN PRN Reason: Nausea Promethazine HCl (Phenergan Suppository) 25 mg OK Q4H PRN PRN Reason: Nausea/Vomiting Senna/Docusate Sodium (Senokot S) 2 tab PO BID [facility] Last Admin: 08/28/18 09:14 Dose: 2 tab Sodium Chloride (Flush - Normal Saline) 10 ml IVF PRN PRN PRN Reason: Saline Flush Sodium Chloride ([place] Nasal [place] 0.65%) 0 ml EA NARE QIDPRN PRN PRN Reason: Nasal Congestion Spironolactone (Aldactone) 25 mg PO HS [facility] Tamsulosin HCl (Flomax) 0.4 mg PO DAILY [facility] Last Admin: 08/28/18 09:23 Dose: 0.4 mg Throat Lozenges (Cepastat Lozenges) 1 td PO Q2H PRN PRN Reason: Sore Throat Tramadol HCl (Ultram) 50 mg PO Q6H PRN PRN Reason: Mild Pain 1-3 Tramadol HCl (Ultram) 100 mg PO Q6H PRN PRN Reason: Moderate Pain 4-6 Trazodone HCl (Desyrel) 50 mg PO HS [facility] Zolpidem Tartrate (Ambien) 5 mg PO HSPRN PRN PRN Reason: Insomnia
[2018-08-28] MEDS: Atorvastatin Calcium 20 MG TAB PO SCH ×2 (12:16→21:25)
[2018-08-28] MEDS: Spironolactone 25 MG TAB PO SCH ×2 (12:17→21:27)
[2018-08-28] MEDS: traZODone HCl 50 MG TAB PO SCH ×2 (12:17→21:27)
[2018-08-28] MEDS: Prazosin HCl 1 MG CAP PO SCH ×2 (12:17→21:38)
[2018-08-28] MEDS: CEFAZOLIN 2 GM in Premix Bag 1 BAG IVPB SCH (12:18)
[2018-08-28] MEDS: Sodium Chloride 0.9% 1,000 ML IV SCH ×2 (12:18→17:34)
[2018-08-28] MEDS: Levothyroxine Sodium 50 MCG TAB PO SCH (12:19)
--- NOTE | 2018-08-28 13:29 | PRG ---
DATE OF SERVICE: 08/28/2018 SUBJECTIVE: Carlos is a 67-year-old white male, who is postop day 1 from a right total hip arthroplasty. He is doing relatively well. He ambulated 300 feet yesterday evening and tolerated it well. OBJECTIVE: VITAL SIGNS: Temperature 98, pulse 100, blood pressure is 141/73, respiratory rate 16 and nonlabored on room air, O2 saturations 95% on room air. EXTREMITIES: Visual inspection of the right lower extremity demonstrates to have clean incision. No erythema. No strikethrough. Leg lengths appeared normal. No malrotation or shortening. LABORATORY DATA: Hemoglobin and hematocrit are pending. IMPRESSION: A 67-year-old white male, postop day #1 right total hip arthroplasty, doing well. PLAN: Continue current care. Discharge to home tomorrow. Job ID: [id number]
[2018-08-28 17:02] LABS: Hemoglobin 10.6 g/dL (14.0-18.0); Mean Corpuscular HGB CONC 33.4 g/dL (32.0-36.0); Mean Corpuscular Hemoglobin 31.9 pg (27.0-31.0); Mean Corpuscular Volume 95.5 fL (78.0-98.0); Mean Platelet Volume 6.8 fL (7.4-10.4); Platelet Count 228 thou/uL (130-400); RBC Distribution Width 11.6 % (11.5-14.5); Red Blood Cell (RBC) Count 3.32 mill/uL (4.70-6.10); White Blood Cell (WBC) Count 9.8 thou/uL (4.8-10.8)
[2018-08-28] MEDS: fentaNYL Citrate/PF 500 MCG, Bupivacaine 10 ML in Sodium Chloride 0.9% 80 ML EPIDURAL SCH (17:36)
[2018-08-29 02:33] LABS: Hemoglobin 11.4 g/dL (14.0-18.0); Mean Corpuscular HGB CONC 33.6 g/dL (32.0-36.0); Mean Corpuscular Hemoglobin 32.4 pg (27.0-31.0); Mean Corpuscular Volume 96.3 fL (78.0-98.0); Mean Platelet Volume 6.7 fL (7.4-10.4); Platelet Count 289 thou/uL (130-400); RBC Distribution Width 11.7 % (11.5-14.5); Red Blood Cell (RBC) Count 3.51 mill/uL (4.70-6.10); White Blood Cell (WBC) Count 13.1 thou/uL (4.8-10.8)
[2018-08-29 02:39] LABS: Anion Gap 13 mmol/L (10-20); BUN (Urea Nitrogen) 24 mg/dL (8.4-25.7); Calc. Creatinine Clearance 66 mL/min (70-130); Calcium 9.4 mg/dL (7.8-10.44); Carbon Dioxide 27 mmol/L (23-31); Chloride 100 mmol/L (98-107); Estimated GFR-MDRD 41; Glucose 219 mg/dL (80-115); Magnesium 2.1 mg/dL (1.6-2.6); Potassium 4.6 mmol/L (3.5-5.1); Sodium 135 mmol/L (136-145)
--- NOTE | 2018-08-29 03:27 | PDOC.EVN ---
Event Note - Event Note Event Note: Paged by RN pt was sob, due to abdominal distension, kub showing colonic ileus, likely due to surgery and possibly analgesia/anesthesia, pt already gto some relief with NGT, we will continue supportive measures, and monitor if not improving might need neostigmine or Sx evaluation.
[2018-08-29] MEDS: Sodium Chloride 0.9% 1,000 ML IV SCH ×4 (04:25→22:51)
--- NOTE | 2018-08-29 05:52 | PDOC.EVN ---
Event Note - Event Note Event Note: Pt has reported improvement and has been able to sleep, however urine output is poor, even with hydration, abdomen still distended, will do ct abdomen and will consult surgery for evaluation, and further recommendations
[2018-08-29] MEDS: Levothyroxine Sodium 50 MCG TAB PO SCH (06:22)
[2018-08-29] MEDS: Piperacillin/Tazobactam 3.375 GM in Sodium Chloride 0.9% 100 ML IVPB SCH ×3 (06:22→18:16)
--- NOTE | 2018-08-29 07:11 | CT ---
CT ABDOMEN AND PELVIS WITHOUT CONTRAST: INDICATIONS: Abdominal distention. Postoperative patient. FINDINGS: There is gaseous distention throughout loops of bowel, including both small bowel and colon. Moderat e retained fecal material of the colon is present. There is also moderate retained debris of the gas tric lumen. Air density is seen within the colon, to the level of the rectum. There is no evidence of free air. Prominent consolidation is seen at each lung base, partially imaged. An indwelling Fol ey catheter is present, with decompression of the urinary bladder. Scattered vascular calcification is present. There is soft tissue edema of the lower abdomen and pelvis. Streak artifact from right hip hardware limits visualization of this region. There is mild prominence of right inguinal lymph n odes. IMPRESSION: 1. Findings that favor an adynamic ileus, although limited without intravenous or enteric contrast. 2. Bibasilar consolidation, incompletely assessed. This could be on the basis of postoperative atel ectasis or, alternatively, pneumonitis/pneumonia. This should be correlated with clinical assessment . Radiographic followup to resolution is also recommended. POS: DEVORAH
--- NOTE | 2018-08-29 07:36 | RAD ---
PRELIMINARY REPORT/[facility]/EMERGENCY AFTER HOURS PROCEDURE EXAM: XR Abdomen, 1 View EXAM DATE/TIME: 08/29/2018 1:18 AM CLINICAL HISTORY: 67 years old, male; Bloating; Patient HX: Abdominal distention and trouble breathing TECHNIQUE: Imaging protocol: Frontal supine view of the abdomen/pelvis. COMPARISON: No relevant prior studies available. FINDINGS: Gastrointestinal tract: There is gaseous distention of the bowel possibly from colonic ileus. Bones/joints: Posterior hip arthroplasty. IMPRESSION: There is gaseous distention of the bowel possibly from colonic ileus. Thank you for allowing us to participate in the care of your patient. Dictated and Authenticated by: Sachin Russell MD 08/29/2018 3:13 AM Central Time ([place] & [place]) FINAL REPORT KUB COMPARISON: 04/11/2018 FINDINGS/IMPRESSION: I agree with the findings and impression given in the preliminary report, per [facility] physician. There is gaseous distention of the large and small bowel, which is nonspecific. Air is seen to the l evel of the rectum, and this is a nonobstructed bowel gas pattern. POS: BAKARI
[2018-08-29] MEDS: fentaNYL Citrate/PF 500 MCG, Bupivacaine 10 ML in Sodium Chloride 0.9% 80 ML EPIDURAL SCH (07:46)
--- NOTE | 2018-08-29 09:52 | PRG ---
DATE OF SERVICE: 08/29/2018 SUBJECTIVE: Carlos is a 67-year-old white male, who is postop day 2 from a right total hip arthroplasty. Yesterday evening, he was treated for an ileus. Abdominal x-rays were obtained, which demonstrated significant abdominal distention and small bowel gas patterns consistent with ileus. A nasogastric tube was placed and he had greater than 1000 mL of vacuum output. He has had one bowel movement, but he still has significant amount of gas and distention. He feels better and he is able to get his breath. He also was in better spirits. OBJECTIVE: VITAL SIGNS: Temperature 97.8, pulse 94, respiratory rate is 20, O2 saturation 93% on 3 L nasal cannula, and blood pressure is 103/70. GENERAL: He does not appear labored for breathing. He is alert, oriented, responsive, and appropriate with the examiner. The incision is clean. ABDOMEN: Tympany to percussion. Bowel sounds are distant consistent with ileus. Significant abdominal distention is appreciated on visual exam. There is no malrotation or shortening of the hip. LABORATORY DATA: Hemoglobin and hematocrit are 11.4 and 33.8. Sodium is low at 135, BUN 24, creatinine 1.67, and glucose is 219. IMPRESSION: 1. A 67-year-old white male, postop day 2, right total hip arthroplasty. 2. Abdominal ileus, currently under treatment. 3. Increase in creatinine, mild hyponatremia. 4. Hyperglycemia. PLAN: Continue current care. Hold discharge for now. He will probably be with us the next day or two once his ileus resolves. Encourage out of bed. Job ID: [id number]
--- NOTE | 2018-08-29 11:59 | PDOC.PN ---
- Subjective Encounter Start Date: 08/29/18 Encounter Start Time: 08:00 -: old records requested/rev last night pt had abdominal distension and abdominal pain, he had CT abdomen showed ileus, NG tube with LIS started, after that he is feeling OK, he is not passing any gas, his pain controlled - Objective Resuscitation Status - Order Detail: 08/28/18 08:37 Resuscitation Status Routine Resuscitation Status: FULL: Full Resuscitation MAR Reviewed: Yes Vital Signs & Weight: Vital Signs (12 hours) Temp Pulse Resp BP Pulse Ox Pulse Ox Pulse Ox 08/29/18 11:20 98.0 F 105 H 20 117/75 94 L 08/29/18 08:58 95 93 L 08/29/18 04:00 99 F 92 20 103/70 93 L Weight Admit Weight 247 lb Weight 247 lb I&O: 08/28/18 08/29/18 08/30/18 06:59 06:59 06:59 Intake Total 800 Output Total 1475 Balance -675 Result Diagrams: 08/29/18 02:14 08/29/18 02:14 Radiology Reviewed by me: Yes (CT abdomen reviewed) Phys Exam - Physical Examination Constitutional: NAD HEENT: PERRLA, moist MMs, sclera anicteric NF tube with LIS Neck: no JVD, supple Respiratory: no wheezing, no rales, no rhonchi Cardiovascular: RRR, no significant murmur, no rub Gastrointestinal: soft distended Musculoskeletal: no edema, pulses present Neurological: non-focal, normal sensation, moves all 4 limbs Lymphatic: no nodes Psychiatric: normal affect, A&O x 3 Skin: no rash, normal turgor Dx/Plan (1) Abdominal distension Code(s): R14.0 - ABDOMINAL DISTENSION (GASEOUS) Status: Acute Comment: due to ileus (2) Ileus Code(s): K56.7 - ILEUS, UNSPECIFIED Status: Acute (3) NGOC (acute kidney injury) Code(s): N17.9 - ACUTE KIDNEY FAILURE, UNSPECIFIED Status: Acute (4) Status post right hip replacement Code(s): Z96.641 - PRESENCE OF RIGHT ARTIFICIAL HIP JOINT Status: Acute (5) Anxiety and depression Code(s): F41.9 - ANXIETY DISORDER, UNSPECIFIED; F32.9 - MAJOR DEPRESSIVE DISORDER, SINGLE EPISODE, UNSPECIFIED Status: Chronic (6) Dyslipidemia Code(s): E78.5 - HYPERLIPIDEMIA, UNSPECIFIED Status: Chronic (7) Hypertension Code(s): I10 - ESSENTIAL (PRIMARY) HYPERTENSION Status: Chronic (8) Hypothyroidism Code(s): E03.9 - HYPOTHYROIDISM, UNSPECIFIED Status: Chronic (9) Obesity (BMI 30-39.9) Code(s): E66.9 - OBESITY, UNSPECIFIED Status: Chronic (10) BPH (benign prostatic hyperplasia) Code(s): N40.0 - BENIGN PROSTATIC HYPERPLASIA WITHOUT LOWER URINRY TRACT SYMP Status: Chronic (11) GERD (gastroesophageal reflux disease) Code(s): K21.9 - GASTRO-ESOPHAGEAL REFLUX DISEASE WITHOUT ESOPHAGITIS Status: Chronic (12) Hypothyroidism Code(s): E03.9 - HYPOTHYROIDISM, UNSPECIFIED Status: Chronic (13) Anemia, normocytic normochromic Code(s): D64.9 - ANEMIA, UNSPECIFIED Status: Acute (14) Atelectasis Status: Acute - Plan cont current plan of care, PT/OT, respiratory therapy, incentive spirometry, out of bed/ambulate, DVT proph w/lovenox * keep NPO * continue NG tube with LIS * monitor in hospital * continue IVF * medication reviewed as below * symptomatic treatment * lovenox for DVT prophylaxis * add protonix IV. * continue empiric antibiotics for now * general surgery consulted * avoid narcotics if possible * repeat labs tomorrow Review of Systems - Review of Systems Eyes: negative: Pain, Vision Change, Conjunctivae Inflammation, Eyelid Inflammation, Redness, Other ENT: negative: Ear Pain, Ear Discharge, Nose Pain, Nose Discharge, Nose Congestion, Mouth Pain, Mouth Swelling, Throat Pain, Throat Swelling, Other Respiratory: negative: Cough, Dry, Shortness of Breath, Hemoptysis, SOB with Excertion, Pleuritic Pain, Sputum, Wheezing Cardiovascular: negative: chest pain, palpitations, orthopnea, paroxysmal nocturnal dyspnea, edema, light headedness, other Gastrointestinal: Nausea, Abdominal Pain. negative: Vomiting, Diarrhea, Constipation, Melena, Hematochezia, Other Genitourinary: negative: Dysuria, Frequency, Incontinence, Hematuria, Retention , Other Musculoskeletal: negative: Neck Pain, Shoulder Pain, Arm Pain, Back Pain, Hand Pain, Leg Pain, Foot Pain, Other Skin: negative: Rash, Lesions, Jeovany, Bruising, Other - Medications/Allergies Allergies/Adverse Reactions: Allergies Allergy/AdvReac Type Severity Reaction Status Date / Time No Known Drug Allergies Allergy Verified 03/25/18 12:10 Medications: Current Medications Acetaminophen (Tylenol) 1,000 mg PO Q6H PRN PRN Reason: FEVER AND PAIN Last Admin: 08/28/18 17:35 Dose: 1,000 mg Hydrocodone Bitart/Acetaminophen ([address] 5/325) 1 tab PO Q4H PRN PRN Reason: Mild Pain 1-3 Hydrocodone Bitart/Acetaminophen ([address] 5/325) 2 tab PO Q4H PRN PRN Reason: For Moderate Pain 4-6 Albuterol/Ipratropium (Duoneb) 3 ml NEB [id number] [facility] Amlodipine Besylate (Norvasc) 10 mg PO DAILY [facility] Last Admin: 08/28/18 09:23 Dose: 10 mg Aspirin (Ecotrin) 81 mg PO BID [facility] Last Admin: 08/28/18 21:27 Dose: 81 mg Atorvastatin Calcium (Lipitor) 10 mg PO HS [facility] Last Admin: 08/28/18 21:25 Dose: 10 mg Bisacodyl (Dulcolax) 10 mg [place] DAILYPRN PRN PRN Reason: Constipation Last Admin: 08/28/18 22:54 Dose: 10 mg Calcium Carbonate (Tums) 1,000 mg PO Q4H PRN PRN Reason: Heartburn or Indigestion Diphenhydramine HCl (Benadryl) 25 mg PO Q3H PRN PRN Reason: Itching Diphenhydramine HCl (Benadryl) 25 mg IM Q3H PRN PRN Reason: Itching Diphenhydramine HCl (Benadryl) 25 mg IVP Q3H PRN PRN Reason: Itching Duloxetine HCl (Cymbalta) 30 mg PO DAILY [facility] Last Admin: 08/28/18 09:23 Dose: 30 mg Emollient Cream (Hydrocerin Cream) 0 gm TOP PRN PRN PRN Reason: Itching Enoxaparin Sodium (Lovenox) 40 mg SC 2100 [facility] Ferrous Gluconate (Fergon) 324 mg PO BID [facility] Last Admin: 08/28/18 21:26 Dose: 324 mg Guaifenesin (Robitussin Sf) 200 mg PO Q4H PRN PRN Reason: Cough Last Admin: 08/28/18 23:53 Dose: 200 mg Hydralazine HCl (Apresoline) 10 mg SLOW IVP Q4H PRN PRN Reason: SBP > 180 and HR < 70 Sodium Chloride (Normal Saline 0.9%) 1,000 mls @ 100 mls/hr IV .Q10H [facility] Last Admin: 08/29/18 04:25 Dose: 1,000 mls Fentanyl Citrate 500 mcg/Bupivacaine HCl 10 ml/ Sodium Chloride 100 mls @ 7.5 mls/hr EPIDURAL INF [facility] Last Admin: 08/29/18 07:46 Dose: 100 mls Piperacillin Sod/Tazobactam (Sod 3.375 gm/ Sodium Chloride) 100 mls @ 200 mls/ hr IVPB Q6HR [facility] Last Admin: 08/29/18 06:22 Dose: 100 mls Iron/Minerals/Multivitamins (Theragran M) 1 tab PO DAILY [facility] Last Admin: 08/28/18 09:22 Dose: 1 tab Ketorolac Tromethamine (Toradol) 15 mg IVP Q6H PRN PRN Reason: Moderate Pain (4-6) Stop: 08/30/18 14:46 Last Admin: 08/28/18 18:01 Dose: 15 mg Levothyroxine Sodium (Synthroid) 50 mcg PO 0600 [facility] Last Admin: 08/29/18 06:22 Dose: Not Given Lisinopril (Zestril) 40 mg PO DAILY [facility] Last Admin: 08/28/18 09:22 Dose: 40 mg Loperamide HCl (Imodium) 2 mg PO PRN PRN PRN Reason: Diarrhea/Loose Stools Miscellaneous Information (Communication Order-Pharmacy) 1 each FS ASDIR [facility] Naloxone HCl (Narcan) 0.2 mg IV Q5MIN PRN PRN Reason: RR <=8 OR OBTUNDED/UNAROUSABLE Naloxone HCl (Narcan) 0.1 mg IVP Q15MIN PRN PRN Reason: URINARY RETENTION Ondansetron HCl (Zofran) 4 mg IVP Q6H PRN PRN Reason: Nausea/Vomiting Last Admin: 08/29/18 01:45 Dose: 4 mg Ondansetron HCl (Zofran Odt) 4 mg SL Q6H PRN PRN Reason: Nausea/Vomiting Pantoprazole Sodium (Protonix) 40 mg PO DAILY [facility] Last Admin: 08/28/18 09:23 Dose: 40 mg Prazosin HCl (Minipress) 2 mg PO HS [facility] Last Admin: 08/28/18 21:38 Dose: 2 mg Promethazine HCl (Phenergan) 12.5 mg IM Q4H PRN PRN Reason: Nausea Promethazine HCl (Phenergan Suppository) 25 mg [place] Q4H PRN PRN Reason: Nausea/Vomiting Senna/Docusate Sodium (Senokot S) 2 tab PO BID [facility] Last Admin: 08/28/18 21:26 Dose: 2 tab Sodium Chloride (Flush - Normal Saline) 10 ml IVF PRN PRN PRN Reason: Saline Flush Sodium Chloride ([place] Nasal [place] 0.65%) 0 ml EA NARE QIDPRN PRN PRN Reason: Nasal Congestion Spironolactone (Aldactone) 25 mg PO HS [facility] Last Admin: 08/28/18 21:27 Dose: 25 mg Tamsulosin HCl (Flomax) 0.4 mg PO DAILY [facility] Last Admin: 08/28/18 09:23 Dose: 0.4 mg Throat Lozenges (Cepastat Lozenges) 1 td PO Q2H PRN PRN Reason: Sore Throat Tramadol HCl (Ultram) 50 mg PO Q6H PRN PRN Reason: Mild Pain 1-3 Tramadol HCl (Ultram) 100 mg PO Q6H PRN PRN Reason: Moderate Pain 4-6 Trazodone HCl (Desyrel) 50 mg PO HS [facility] Last Admin: 08/28/18 21:27 Dose: 50 mg Zolpidem Tartrate (Ambien) 5 mg PO HSPRN PRN PRN Reason: Insomnia
[2018-08-29] MEDS ORDERED: Bisacodyl 10 MG SUPP PR PRN (13:39)
[2018-08-29] MEDS: Amlodipine 10 MG TAB PO SCH (13:46)
[2018-08-29] MEDS: Aspirin 81 mg Enteric Coated Tablet PO SCH ×2 (13:46→22:35)
[2018-08-29] MEDS: Ferrous Gluconate 324 MG TAB PO SCH ×2 (13:47→22:35)
[2018-08-29] MEDS: Lisinopril 20 MG TAB PO SCH (13:47)
[2018-08-29] MEDS: Multivitamin W/ Minerals 1 TAB PO SCH (13:47)
[2018-08-29] MEDS: Senokot S 8.6-50 MG TAB PO SCH ×2 (13:47→22:36)
[2018-08-29] MEDS: DULoxetine 30 MG CAP PO SCH (13:47)
[2018-08-29] MEDS: Tamsulosin HCl 0.4 MG CAP PO SCH (13:48)
--- NOTE | 2018-08-29 14:37 | RAD ---
KUB: HISTORY: NG tube placement. COMPARISON: 08/29/2018 at 1:21 a.m. FINDINGS: A single view of the abdomen shows air-filled loops of large and small bowel. There appears to be an NG tube curled back on itself. The distal end of the curl is at the gastroesophageal junction and e xtends upward, into the esophagus. IMPRESSION: Nasogastric tube coiled on itself within the esophagus. POS: JOSE
--- NOTE | 2018-08-29 17:31 | RAD ---
XR Abdomen 1 View/KUB History: NG tube placement Comparison: Radiograph same day Findings: Enteric tube tip sits at the gastric body in good position. There are dilated loops of juancarlos l in the abdomen. Impression: Satisfactory position of the enteric tube.
[2018-08-29] MEDS ORDERED: Acetaminophen 1,000 MG in Premix Bag 1 BAG IVPB SCH (20:15)
[2018-08-29] MEDS: Enoxaparin Sodium 40 MG/0.4 ML SYRINGE SC SCH (20:31)
[2018-08-29] MEDS: Atorvastatin Calcium 20 MG TAB PO SCH (22:35)
[2018-08-29] MEDS: Prazosin HCl 1 MG CAP PO SCH (22:35)
[2018-08-29] MEDS: Spironolactone 25 MG TAB PO SCH (22:36)
[2018-08-29] MEDS: traZODone HCl 50 MG TAB PO SCH (22:36)
--- NOTE | 2018-08-30 00:07 | CON ---
DATE OF CONSULTATION: REASON FOR CONSULT: Abdominal distention. HISTORY OF PRESENT ILLNESS: Mr. Weinstein is a 67-year-old man who underwent a right total hip replacement on Saturday, 2 days ago. He was doing well postoperatively until last night when he became progressively more distended and short of breath. He had to be placed on oxygen and was noted to have fairly marked abdominal distention. A KUB showed likely ileus and a CT confirmed that. The patient states that right after his surgery, he was able to pull 2000 mL on incentive spirometry, but now he has only pulled 500. He denies any pain in his abdomen, but has had some mild nausea. He has passed gas. He was given a suppository this morning and had a small bowel movement with that. His nurse says that the bowel movement had a whitish color to it, but no blood. PAST MEDICAL HISTORY: Hypoparathyroidism, hypertension, gout, anxiety, osteoarthritis, and nephrolithiasis. PAST SURGICAL HISTORY: Parathyroid dissection, recent right total hip replacement, cervical spinal fusion, hernia repair x2 and breast biopsy. OUTPATIENT MEDICATIONS: Include: 1. Amlodipine. 2. Aspirin. 3. Atorvastatin. 4. Diclofenac. 5. Fluoxetine. 6. Synthroid. 7. Omeprazole. 8. Prazosin. 9. Spironolactone. 10. Tamsulosin. 11. Trazodone. ALLERGIES: HE HAS NO KNOWN DRUG ALLERGIES. FAMILY HISTORY: Noncontributory. SOCIAL HISTORY: He does not smoke, drink, or use any illicit drugs. PHYSICAL EXAMINATION: VITAL SIGNS: The patient is afebrile. He has some mild tachycardia in the 100s. Blood pressure is mildly elevated at 141/73. He is breathing 18 times a minute, saturating 94% on 2 L nasal cannula. The patient is obese with a BMI of 39.9. HEENT: Unremarkable. NECK: Supple without lymphadenopathy or thyroid nodules. HEART: Regular in its rate and rhythm. I do not appreciate any murmurs, rubs, or gallops. He does have some basilar crackles and decreased inspiratory . ABDOMEN: Very distended and bowel sounds are hypoactive. He is tympanitic. No palpable masses or hernias. No tenderness to palpation. EXTREMITIES: Warm and well perfused without edema. NEUROLOGIC: No focal deficits. His OR dressing is clean. RECTAL: Shows a somewhat distended rectum with no palpable stool in the vault. There are no palpable masses. IMAGING: CT images are reviewed and I agree with the written report. ASSESSMENT: Adynamic ileus, multifactorial, likely related to his recent surgery and immobility, pain medications and epidural. I recommended minimizing narcotics, turning the epidural down, increasing his activity level and stimulating the bowel from below with suppository. The patient has an NG tube in place and this is kinked and curled back into the esophagus, so the nurse is going to replace this. There is no indication for surgical intervention at this time. His urine output has been down somewhat, but does not have an abdominal compartment syndrome, but is likely dehydrated from decreased oral intake and ileus and will require some IV hydration. Dr. Lewis will follow over the weekend. No significant electrolyte abnormalities on labs. Urine function will need to be monitored. Job ID: [id number]
[2018-08-30] MEDS: Piperacillin/Tazobactam 3.375 GM in Sodium Chloride 0.9% 100 ML IVPB SCH ×4 (00:45→17:00)
[2018-08-30] MEDS: fentaNYL Citrate/PF 500 MCG, Bupivacaine 10 ML in Sodium Chloride 0.9% 80 ML EPIDURAL SCH (00:48)
[2018-08-30] MEDS: Levothyroxine Sodium 50 MCG TAB PO SCH (06:20)
[2018-08-30 07:17] LABS: Hemoglobin 9.3 g/dL (14.0-18.0); Mean Corpuscular HGB CONC 32.7 g/dL (32.0-36.0); Mean Corpuscular Hemoglobin 31.7 pg (27.0-31.0); Mean Platelet Volume 6.7 fL (7.4-10.4); Platelet Count 186 thou/uL (130-400); RBC Distribution Width 11.6 % (11.5-14.5); Red Blood Cell (RBC) Count 2.95 mill/uL (4.70-6.10); White Blood Cell (WBC) Count 4.5 thou/uL (4.8-10.8)
[2018-08-30 07:40] LABS: ALT (SGPT) 50 U/L (8-55); AST (SGOT) 58 U/L (5-34); Albumin 2.9 g/dL (3.4-4.8); Alkaline Phosphatase 69 U/L (40-150); Anion Gap 10 mmol/L (10-20); BUN (Urea Nitrogen) 23 mg/dL (8.4-25.7); Bilirubin, Total 0.5 mg/dL (0.2-1.2); Calc. Creatinine Clearance 149 mL/min (70-130); Calcium 8.3 mg/dL (7.8-10.44); Carbon Dioxide 26 mmol/L (23-31); Chloride 106 mmol/L (98-107); Estimated GFR-MDRD Greater than 90; Globulin 2.4 g/dL (2.4-3.5); Glucose 106 mg/dL (80-115); Magnesium 1.8 mg/dL (1.6-2.6); Phosphorus 2.2 mg/dL (2.3-4.7); Protein, Total 5.3 g/dL (5.8-8.1); Sodium 138 mmol/L (136-145)
[2018-08-30] MEDS ORDERED: Sodium Phosphate 15 MMOL in Sodium Chloride 0.9% 250 ML 250 ML IVPB SCH (08:30)
[2018-08-30] MEDS: Sodium Chloride 0.9% 1,000 ML IV SCH ×4 (08:35→23:59)
[2018-08-30] MEDS: Pantoprazole 40 MG VIAL IVP SCH (08:37)
[2018-08-30] MEDS: Aspirin 81 mg Enteric Coated Tablet PO SCH (09:55)
[2018-08-30] MEDS: Amlodipine 10 MG TAB PO SCH (09:55)
[2018-08-30] MEDS: DULoxetine 30 MG CAP PO SCH (09:55)
[2018-08-30] MEDS: Ferrous Gluconate 324 MG TAB PO SCH (09:55)
[2018-08-30] MEDS: Lisinopril 20 MG TAB PO SCH (09:55)
[2018-08-30] MEDS: Senokot S 8.6-50 MG TAB PO SCH (09:56)
[2018-08-30] MEDS: Multivitamin W/ Minerals 1 TAB PO SCH (09:56)
[2018-08-30] MEDS: Tamsulosin HCl 0.4 MG CAP PO SCH (09:56)
[2018-08-30] MEDS ORDERED: Morphine 2 MG/ML SYRINGE SLOW IVP PRN (10:15)
[2018-08-30] MEDS ORDERED: Morphine 4 MG/ML VIAL SLOW IVP PRN (10:15)
[2018-08-30] MEDS ORDERED: Fentanyl 100 MCG/2 ML VIAL SLOW IVP PRN (10:16)
--- NOTE | 2018-08-30 11:49 | PDOC.PN ---
- Subjective Encounter Start Date: 08/30/18 Encounter Start Time: 10:30 Patient seen and examined. No new complaints. No overnight events last night pt was confused,he was tachycardic and he was febrile, he was transferred to [facility] he had BM after dulcolax suppository overall doing better - Objective Resuscitation Status - Order Detail: 08/28/18 08:37 Resuscitation Status Routine Resuscitation Status: FULL: Full Resuscitation MAR Reviewed: Yes Vital Signs & Weight: Vital Signs (12 hours) Temp Pulse Resp BP BP Pulse Ox 08/30/18 11:37 98.8 F 08/30/18 09:55 115 H 141/73 H 08/30/18 07:31 115 H 26 H 94 L 08/30/18 07:25 96 08/30/18 07:14 98.8 F 08/30/18 04:00 98.1 F 97 18 114/68 96 08/30/18 03:36 95 08/30/18 00:00 98.2 F 103 H 20 100/67 96 Weight Admit Weight 247 lb Weight 247 lb Most Recent Monitor Data Heart Rate from ECG 100 NIBP 138/84 NIBP BP-Mean 102 Respiration from ECG 23 SpO2 95 I&O: 08/29/18 08/30/18 08/31/18 06:59 06:59 06:59 Intake Total 800 2880 Output Total 1475 1625 Balance -675 1255 Result Diagrams: 08/30/18 06:52 08/30/18 06:52 Radiology Reviewed by me: Yes EKG Reviewed by me: Yes (nsr) Phys Exam - Physical Examination Constitutional: NAD HEENT: PERRLA, moist MMs, sclera anicteric NG tube+ Neck: no JVD, supple Respiratory: no wheezing, no rales, no rhonchi Cardiovascular: RRR, no significant murmur, no rub Gastrointestinal: soft less distended, very slugish tempanic sound Musculoskeletal: no edema, pulses present Neurological: non-focal, normal sensation, moves all 4 limbs Lymphatic: no nodes Psychiatric: normal affect, A&O x 3 Skin: no rash, normal turgor Dx/Plan (1) Abdominal distension Code(s): R14.0 - ABDOMINAL DISTENSION (GASEOUS) Status: Acute Comment: due to ileus (2) Ileus Code(s): K56.7 - ILEUS, UNSPECIFIED Status: Acute (3) NGOC (acute kidney injury) Code(s): N17.9 - ACUTE KIDNEY FAILURE, UNSPECIFIED Status: Resolved (4) Status post right hip replacement Code(s): Z96.641 - PRESENCE OF RIGHT ARTIFICIAL HIP JOINT Status: Acute (5) Anxiety and depression Code(s): F41.9 - ANXIETY DISORDER, UNSPECIFIED; F32.9 - MAJOR DEPRESSIVE DISORDER, SINGLE EPISODE, UNSPECIFIED Status: Chronic (6) Dyslipidemia Code(s): E78.5 - HYPERLIPIDEMIA, UNSPECIFIED Status: Chronic (7) Hypertension Code(s): I10 - ESSENTIAL (PRIMARY) HYPERTENSION Status: Chronic (8) Hypothyroidism Code(s): E03.9 - HYPOTHYROIDISM, UNSPECIFIED Status: Chronic (9) Obesity (BMI 30-39.9) Code(s): E66.9 - OBESITY, UNSPECIFIED Status: Chronic (10) BPH (benign prostatic hyperplasia) Code(s): N40.0 - BENIGN PROSTATIC HYPERPLASIA WITHOUT LOWER URINRY TRACT SYMP Status: Chronic (11) GERD (gastroesophageal reflux disease) Code(s): K21.9 - GASTRO-ESOPHAGEAL REFLUX DISEASE WITHOUT ESOPHAGITIS Status: Chronic (12) Hypothyroidism Code(s): E03.9 - HYPOTHYROIDISM, UNSPECIFIED Status: Chronic (13) Anemia, normocytic normochromic Code(s): D64.9 - ANEMIA, UNSPECIFIED Status: Acute (14) Atelectasis Status: Acute - Plan cont current plan of care, PT/OT, respiratory therapy, incentive spirometry * will ask anesthesia to DC epidural if possible * continue NPO * continue NG tube with LIS * medication reviewed as below * symptomatic treatment * ambulate and continue PT * replace sodium phosphate. Review of Systems - Review of Systems ENT: negative: Ear Pain, Ear Discharge, Nose Pain, Nose Discharge, Nose Congestion, Mouth Pain, Mouth Swelling, Throat Pain, Throat Swelling, Other Respiratory: negative: Cough, Dry, Shortness of Breath, Hemoptysis, SOB with Excertion, Pleuritic Pain, Sputum, Wheezing Cardiovascular: negative: chest pain, palpitations, orthopnea, paroxysmal nocturnal dyspnea, edema, light headedness, other Gastrointestinal: negative: Nausea, Vomiting, Abdominal Pain, Diarrhea, Constipation, Melena, Hematochezia, Other Genitourinary: negative: Dysuria, Frequency, Incontinence, Hematuria, Retention , Other Musculoskeletal: negative: Neck Pain, Shoulder Pain, Arm Pain, Back Pain, Hand Pain, Leg Pain, Foot Pain, Other - Medications/Allergies Allergies/Adverse Reactions: Allergies Allergy/AdvReac Type Severity Reaction Status Date / Time No Known Drug Allergies Allergy Verified 03/25/18 12:10 Medications: Current Medications Acetaminophen (Tylenol) 1,000 mg PO Q6H PRN PRN Reason: FEVER AND PAIN Last Admin: 08/28/18 17:35 Dose: 1,000 mg Hydrocodone Bitart/Acetaminophen ([place] 5/325) 1 tab PO Q4H PRN PRN Reason: Mild Pain 1-3 Hydrocodone Bitart/Acetaminophen ([place] 5/325) 2 tab PO Q4H PRN PRN Reason: For Moderate Pain 4-6 Albuterol/Ipratropium (Duoneb) 3 ml NEB E0ED-EO [facility] Last Admin: 08/30/18 07:31 Dose: 3 ml Amlodipine Besylate (Norvasc) 10 mg PO DAILY [facility] Last Admin: 08/30/18 09:55 Dose: Not Given Aspirin (Ecotrin) 81 mg PO BID [facility] Last Admin: 08/30/18 09:55 Dose: Not Given Atorvastatin Calcium (Lipitor) 10 mg PO HS [facility] Last Admin: 08/29/18 22:35 Dose: Not Given Bisacodyl (Dulcolax) 10 mg ID DAILYPRN PRN PRN Reason: Constipation Calcium Carbonate (Tums) 1,000 mg PO Q4H PRN PRN Reason: Heartburn or Indigestion Diphenhydramine HCl (Benadryl) 25 mg PO Q3H PRN PRN Reason: Itching Diphenhydramine HCl (Benadryl) 25 mg IM Q3H PRN PRN Reason: Itching Diphenhydramine HCl (Benadryl) 25 mg IVP Q3H PRN PRN Reason: Itching Duloxetine HCl (Cymbalta) 30 mg PO DAILY [facility] Last Admin: 08/30/18 09:55 Dose: Not Given Emollient Cream (Hydrocerin Cream) 0 gm TOP PRN PRN PRN Reason: Itching Enoxaparin Sodium (Lovenox) 40 mg SC 2100 [facility] Last Admin: 08/29/18 20:31 Dose: 40 mg Fentanyl (Sublimaze) 50 mcg SLOW IVP Q1H PRN PRN Reason: Pain Ferrous Gluconate (Fergon) 324 mg PO BID [facility] Last Admin: 08/30/18 09:55 Dose: Not Given Guaifenesin (Robitussin Sf) 200 mg PO Q4H PRN PRN Reason: Cough Last Admin: 08/28/18 23:53 Dose: 200 mg Hydralazine HCl (Apresoline) 10 mg SLOW IVP Q4H PRN PRN Reason: SBP > 180 and HR < 70 Piperacillin Sod/Tazobactam (Sod 3.375 gm/ Sodium Chloride) 100 mls @ 200 mls/ hr IVPB Q6HR [facility] Last Admin: 08/30/18 06:23 Dose: 100 mls Sodium Chloride (Normal Saline 0.9%) 1,000 mls @ 150 mls/hr IV .Q6H40M [facility] Last Admin: 08/30/18 08:35 Dose: 1,000 mls Sodium Phosphate 15 mmol/ (Sodium Chloride) 255 mls @ 42.5 mls/hr IVPB NOW [facility] Stop: 08/30/18 14:29 Last Admin: 08/30/18 10:40 Dose: 255 mls Acetaminophen 1,000 mg/ Device 100 mls @ 400 mls/hr IVPB Q6HR [facility] Stop: 08/31/18 06:14 Iron/Minerals/Multivitamins (Theragran M) 1 tab PO DAILY [facility] Last Admin: 08/30/18 09:56 Dose: Not Given Ketorolac Tromethamine (Toradol) 15 mg IVP Q6H PRN PRN Reason: Moderate Pain (4-6) Stop: 08/30/18 14:46 Last Admin: 08/28/18 18:01 Dose: 15 mg Levothyroxine Sodium (Synthroid) 50 mcg PO 0600 [facility] Last Admin: 08/30/18 06:20 Dose: Not Given Lisinopril (Zestril) 40 mg PO DAILY [facility] Last Admin: 08/30/18 09:55 Dose: Not Given Loperamide HCl (Imodium) 2 mg PO PRN PRN PRN Reason: Diarrhea/Loose Stools Miscellaneous Information (Communication Order-Pharmacy) 1 each FS ASDIR [facility] Morphine Sulfate (Morphine) 2 mg SLOW IVP Q2H PRN PRN Reason: Pain Morphine Sulfate (Morphine) 4 mg SLOW IVP Q2H PRN PRN Reason: Pain Naloxone HCl (Narcan) 0.2 mg IV Q5MIN PRN PRN Reason: RR <=8 OR OBTUNDED/UNAROUSABLE Naloxone HCl (Narcan) 0.1 mg IVP Q15MIN PRN PRN Reason: URINARY RETENTION Ondansetron HCl (Zofran) 4 mg IVP Q6H PRN PRN Reason: Nausea/Vomiting Last Admin: 08/29/18 01:45 Dose: 4 mg Ondansetron HCl (Zofran Odt) 4 mg SL Q6H PRN PRN Reason: Nausea/Vomiting Pantoprazole Sodium (Protonix) 40 mg IVP DAILY [facility] Last Admin: 08/30/18 08:37 Dose: 40 mg Prazosin HCl (Minipress) 2 mg PO HS [facility] Last Admin: 08/29/18 22:35 Dose: Not Given Promethazine HCl (Phenergan) 12.5 mg IM Q4H PRN PRN Reason: Nausea Promethazine HCl (Phenergan Suppository) 25 mg ID Q4H PRN PRN Reason: Nausea/Vomiting Senna/Docusate Sodium (Senokot S) 2 tab PO BID [facility] Last Admin: 08/30/18 09:56 Dose: Not Given Sodium Chloride (Flush - Normal Saline) 10 ml IVF PRN PRN PRN Reason: Saline Flush Sodium Chloride ([place] Nasal [place] 0.65%) 0 ml EA NARE QIDPRN PRN PRN Reason: Nasal Congestion Spironolactone (Aldactone) 25 mg PO HS [facility] Last Admin: 08/29/18 22:36 Dose: Not Given Tamsulosin HCl (Flomax) 0.4 mg PO DAILY [facility] Last Admin: 08/30/18 09:56 Dose: Not Given Throat Lozenges (Cepastat Lozenges) 1 td PO Q2H PRN PRN Reason: Sore Throat Tramadol HCl (Ultram) 50 mg PO Q6H PRN PRN Reason: Mild Pain 1-3 Tramadol HCl (Ultram) 100 mg PO Q6H PRN PRN Reason: Moderate Pain 4-6 Trazodone HCl (Desyrel) 50 mg PO HS [facility] Last Admin: 08/29/18 22:36 Dose: Not Given Zolpidem Tartrate (Ambien) 5 mg PO HSPRN PRN PRN Reason: Insomnia
[2018-08-30] MEDS: Acetaminophen 1,000 MG in Premix Bag 1 BAG IVPB SCH ×3 (12:08→23:51)
[2018-08-30] MEDS ORDERED: Ketorolac Tromethamine 30 MG/ML VIAL IVP PRN (17:18)
--- NOTE | 2018-08-30 17:41 | PRG ---
DATE OF SERVICE: 08/30/2018 SUBJECTIVE: Mr. Weinstein is seen today for Dr. Lauren. He has had a total hip replacement, has an ileus. He has passed a small amount of flatus and stool. He thinks his abdomen is distended, because he is "fat." OBJECTIVE: VITAL SIGNS: Temperature 98.6 degrees, pulse 89, 99% saturation, heart rate 100, blood pressure 131/70. The patient has been moved to [facility] for uncertain reasons. Apparently, he is confused and tachycardic and was febrile and transferred to [facility]. He is not febrile today. There is no fever recorded in the graphics. Heart rate is 89, although on the floor was 102 to 115. LUNGS: Clear to auscultation. CARDIAC: Regular rate and rhythm without murmur or GALLOP. ABDOMEN: Distended, tympanitic. LABORATORY DATA: His white count is 4, hemoglobin 9.3. Basic metabolic profile is normal. NG tube output 24 hours 450 mL. ASSESSMENT AND PLAN: The patient is postop day #2. Probably fevers due to atelectasis postoperatively. At this point, would recommend mobility up in the chair frequently. Incentive spirometer. We will continue NG tube now, awaiting for his abdominal distention and tympany to resolve a better bowel function. Job ID: [id number]
[2018-08-30] MEDS: Enoxaparin Sodium 40 MG/0.4 ML SYRINGE SC SCH (20:53)
[2018-08-31 04:32] LABS: Hemoglobin 8.9 g/dL (14.0-18.0); Mean Corpuscular HGB CONC 32.4 g/dL (32.0-36.0); Mean Corpuscular Hemoglobin 31.6 pg (27.0-31.0); Mean Corpuscular Volume 97.6 fL (78.0-98.0); Mean Platelet Volume 6.8 fL (7.4-10.4); Platelet Count 196 thou/uL (130-400); RBC Distribution Width 11.5 % (11.5-14.5); Red Blood Cell (RBC) Count 2.82 mill/uL (4.70-6.10); White Blood Cell (WBC) Count 3.8 thou/uL (4.8-10.8)
[2018-08-31 04:53] LABS: Anion Gap 13 mmol/L (10-20); BUN (Urea Nitrogen) 16 mg/dL (8.4-25.7); Calc. Creatinine Clearance 173 mL/min (70-130); Calcium 8.3 mg/dL (7.8-10.44); Carbon Dioxide 26 mmol/L (23-31); Chloride 106 mmol/L (98-107); Estimated GFR-MDRD Greater than 90; Glucose 90 mg/dL (80-115); Potassium 3.7 mmol/L (3.5-5.1); Sodium 141 mmol/L (136-145)
[2018-08-31] MEDS: Acetaminophen 1,000 MG in Premix Bag 1 BAG IVPB SCH ×3 (06:26→17:58)
[2018-08-31] MEDS: Piperacillin/Tazobactam 3.375 GM in Sodium Chloride 0.9% 100 ML IVPB SCH ×4 (06:30→18:02)
[2018-08-31] MEDS: Multivitamin W/ Minerals 1 TAB PO SCH (08:18)
[2018-08-31] MEDS: Sodium Chloride 0.9% 1,000 ML IV SCH ×3 (08:18→20:17)
[2018-08-31] MEDS: Pantoprazole 40 MG VIAL IVP SCH (08:18)
--- NOTE | 2018-08-31 11:42 | RAD ---
EXAM: XR Abdomen 2 View PROVIDED CLINICAL HISTORY: Ileus COMPARISON: 08/29/2018 FINDINGS: Bibasilar pleural-parenchymal opacity redemonstrated. No evidence for pneumoperitoneum. Enteric leatha ter in similar position. Nonspecific bowel gas pattern. IMPRESSION: Nonspecific bowel gas pattern.
--- NOTE | 2018-08-31 11:43 | PDOC.PN ---
- Subjective Encounter Start Date: 08/31/18 Encounter Start Time: 10:15 Patient seen and examined. No new complaints. No overnight events - Objective Resuscitation Status - Order Detail: 08/28/18 08:37 Resuscitation Status Routine Resuscitation Status: FULL: Full Resuscitation MAR Reviewed: Yes Vital Signs & Weight: Vital Signs (12 hours) Temp Pulse Pulse Pulse Resp BP BP 08/31/18 11:09 97.9 F 08/31/18 10:05 83 83 165/84 H 140/85 08/31/18 07:48 84 20 08/31/18 07:21 08/31/18 07:18 98.4 F 08/31/18 04:00 97.5 F L 08/30/18 23:58 Pulse Ox Pulse Ox Pulse Ox 08/31/18 11:09 08/31/18 10:05 93 L 95 08/31/18 07:48 98 08/31/18 07:21 95 08/31/18 07:18 08/31/18 04:00 08/30/18 23:58 97 Weight Admit Weight 247 lb Weight 247 lb Most Recent Monitor Data Heart Rate from ECG 84 NIBP 165/84 NIBP BP-Mean 111 Respiration from ECG 20 SpO2 90 I&O: 08/30/18 08/31/18 09/01/18 06:59 06:59 06:59 Intake Total 2880 3950 Output Total 1625 1200 Balance 1255 2750 Result Diagrams: 08/31/18 03:45 08/31/18 03:45 EKG Reviewed by me: Yes (nsr) Phys Exam - Physical Examination Constitutional: NAD HEENT: PERRLA, moist MMs, sclera anicteric NG tube in place Neck: no JVD, supple Respiratory: no wheezing, no rales, no rhonchi Cardiovascular: RRR, no significant murmur, no rub Gastrointestinal: soft, non-tender mild distention, no active BS Musculoskeletal: no edema, pulses present Neurological: non-focal, normal sensation, moves all 4 limbs Lymphatic: no nodes Psychiatric: normal affect, A&O x 3 Skin: no rash, normal turgor Dx/Plan (1) Abdominal distension Code(s): R14.0 - ABDOMINAL DISTENSION (GASEOUS) Status: Acute Comment: due to ileus (2) Ileus Code(s): K56.7 - ILEUS, UNSPECIFIED Status: Acute (3) NGOC (acute kidney injury) Code(s): N17.9 - ACUTE KIDNEY FAILURE, UNSPECIFIED Status: Resolved (4) Status post right hip replacement Code(s): Z96.641 - PRESENCE OF RIGHT ARTIFICIAL HIP JOINT Status: Acute (5) Anxiety and depression Code(s): F41.9 - ANXIETY DISORDER, UNSPECIFIED; F32.9 - MAJOR DEPRESSIVE DISORDER, SINGLE EPISODE, UNSPECIFIED Status: Chronic (6) Dyslipidemia Code(s): E78.5 - HYPERLIPIDEMIA, UNSPECIFIED Status: Chronic (7) Hypertension Code(s): I10 - ESSENTIAL (PRIMARY) HYPERTENSION Status: Chronic (8) Hypothyroidism Code(s): E03.9 - HYPOTHYROIDISM, UNSPECIFIED Status: Chronic (9) Obesity (BMI 30-39.9) Code(s): E66.9 - OBESITY, UNSPECIFIED Status: Chronic (10) BPH (benign prostatic hyperplasia) Code(s): N40.0 - BENIGN PROSTATIC HYPERPLASIA WITHOUT LOWER URINRY TRACT SYMP Status: Chronic (11) GERD (gastroesophageal reflux disease) Code(s): K21.9 - GASTRO-ESOPHAGEAL REFLUX DISEASE WITHOUT ESOPHAGITIS Status: Chronic (12) Hypothyroidism Code(s): E03.9 - HYPOTHYROIDISM, UNSPECIFIED Status: Chronic (13) Anemia, normocytic normochromic Code(s): D64.9 - ANEMIA, UNSPECIFIED Status: Acute (14) Atelectasis Status: Acute - Plan cont current plan of care, plan discussed w/ family, PT/OT * medication reviewed as below * symptomatic treatment * transfer to surgical floor * diet advancement will defer to surgeon * continue PT * snu/rehab evaluation before discharge. Review of Systems - Review of Systems ENT: negative: Ear Pain, Ear Discharge, Nose Pain, Nose Discharge, Nose Congestion, Mouth Pain, Mouth Swelling, Throat Pain, Throat Swelling, Other Respiratory: negative: Cough, Dry, Shortness of Breath, Hemoptysis, SOB with Excertion, Pleuritic Pain, Sputum, Wheezing Cardiovascular: negative: chest pain, palpitations, orthopnea, paroxysmal nocturnal dyspnea, edema, light headedness, other Gastrointestinal: negative: Nausea, Vomiting, Abdominal Pain, Diarrhea, Constipation, Melena, Hematochezia, Other Genitourinary: negative: Dysuria, Frequency, Incontinence, Hematuria, Retention , Other Musculoskeletal: negative: Neck Pain, Shoulder Pain, Arm Pain, Back Pain, Hand Pain, Leg Pain, Foot Pain, Other Skin: negative: Rash, Lesions, [place], Bruising, Other - Medications/Allergies Allergies/Adverse Reactions: Allergies Allergy/AdvReac Type Severity Reaction Status Date / Time No Known Drug Allergies Allergy Verified 03/25/18 12:10 Medications: Current Medications Albuterol/Ipratropium (Duoneb) 3 ml NEB [id number] [facility] Last Admin: 08/31/18 07:48 Dose: 3 ml Diphenhydramine HCl (Benadryl) 25 mg IM Q3H PRN PRN Reason: Itching Diphenhydramine HCl (Benadryl) 25 mg IVP Q3H PRN PRN Reason: Itching Emollient Cream (Hydrocerin Cream) 0 gm TOP PRN PRN PRN Reason: Itching Enoxaparin Sodium (Lovenox) 40 mg SC 2100 [facility] Last Admin: 08/30/18 20:53 Dose: 40 mg Fentanyl (Sublimaze) 50 mcg SLOW IVP Q1H PRN PRN Reason: Pain Hydralazine HCl (Apresoline) 10 mg SLOW IVP Q4H PRN PRN Reason: SBP > 180 and HR < 70 Piperacillin Sod/Tazobactam (Sod 3.375 gm/ Sodium Chloride) 100 mls @ 200 mls/ hr IVPB Q6HR [facility] Last Admin: 08/31/18 06:30 Dose: 100 mls Sodium Chloride (Normal Saline 0.9%) 1,000 mls @ 150 mls/hr IV .Q6H40M [facility] Last Admin: 08/31/18 08:18 Dose: 1,000 mls Acetaminophen 1,000 mg/ Device 100 mls @ 400 mls/hr IVPB Q6H [facility] Stop: 09/02/18 17:31 Iron/Minerals/Multivitamins (Theragran M) 1 tab PO DAILY [facility] Last Admin: 08/31/18 08:18 Dose: Not Given Ketorolac Tromethamine (Toradol) 15 mg IVP Q6H PRN PRN Reason: Pain Stop: 09/04/18 17:19 Last Admin: 08/30/18 22:07 Dose: 15 mg Miscellaneous Information (Communication Order-Pharmacy) 1 each FS ASDIR [facility] Morphine Sulfate (Morphine) 2 mg SLOW IVP Q2H PRN PRN Reason: Pain Morphine Sulfate (Morphine) 4 mg SLOW IVP Q2H PRN PRN Reason: Pain Naloxone HCl (Narcan) 0.2 mg IV Q5MIN PRN PRN Reason: RR <=8 OR OBTUNDED/UNAROUSABLE Naloxone HCl (Narcan) 0.1 mg IVP Q15MIN PRN PRN Reason: URINARY RETENTION Ondansetron HCl (Zofran) 4 mg IVP Q6H PRN PRN Reason: Nausea/Vomiting Last Admin: 08/29/18 01:45 Dose: 4 mg Ondansetron HCl (Zofran Odt) 4 mg SL Q6H PRN PRN Reason: Nausea/Vomiting Pantoprazole Sodium (Protonix) 40 mg IVP DAILY [facility] Last Admin: 08/31/18 08:18 Dose: 40 mg Promethazine HCl (Phenergan Suppository) 25 mg UT Q4H PRN PRN Reason: Nausea/Vomiting Sodium Chloride (Flush - Normal Saline) 10 ml IVF PRN PRN PRN Reason: Saline Flush Sodium Chloride ([place] Nasal [place] 0.65%) 0 ml EA NARE QIDPRN PRN PRN Reason: Nasal Congestion Throat Lozenges (Cepastat Lozenges) 1 td PO Q2H PRN PRN Reason: Sore Throat
[2018-08-31] MEDS ORDERED: Acetaminophen 500 MG TAB PO PRN (16:32)
[2018-08-31] MEDS ORDERED: Ibuprofen 600 MG TAB PO PRN (16:32)
[2018-08-31] MEDS ORDERED: traMADol HCl 50 MG TAB PO PRN ×2 (16:32)
--- NOTE | 2018-08-31 16:57 | PRG ---
DATE OF SERVICE: SUBJECTIVE: Mr. Weinstein is doing well today. He has not had anything significant of his NG tube overnight. He has passed flatus. He feels much better. Abdominal x-rays this morning revealed normal bowel gas pattern. His colon and small bowel were markedly decompressed. OBJECTIVE: LUNGS: Clear to auscultation. CARDIAC: Regular rate and rhythm without murmur or gallop. ABDOMEN: Soft. Bowel sounds present. Nontender. ASSESSMENT AND PLAN: Resolving ileus. We would plan to advance his diet to full liquid and advance as tolerated to regular diet tomorrow. Discontinue his NG tube. Of course, increase activity and protocol per post hip replacement. Job ID: [id number]
[2018-08-31] MEDS: Enoxaparin Sodium 40 MG/0.4 ML SYRINGE SC SCH (20:32)
[2018-08-31] MEDS: traZODone HCl 50 MG TAB PO SCH (20:32)
[2018-08-31] MEDS: Atorvastatin Calcium 10 MG TAB PO SCH (20:32)
[2018-08-31] MEDS: Citrucel 500 MG TAB PO SCH (20:33)
[2018-08-31] MEDS: Tamsulosin HCl 0.4 MG CAP PO SCH (20:33)
[2018-08-31] MEDS: Prazosin HCl 1 MG CAP PO SCH (20:34)
[2018-08-31] MEDS: Spironolactone 25 MG TAB PO SCH (20:35)
[2018-09-01] MEDS: Piperacillin/Tazobactam 3.375 GM in Sodium Chloride 0.9% 100 ML IVPB SCH ×3 (00:09→12:00)
[2018-09-01] MEDS: Sodium Chloride 0.9% 1,000 ML IV SCH ×3 (03:56→13:40)
[2018-09-01 04:38] LABS: Mean Corpuscular HGB CONC 33.6 g/dL (32.0-36.0); Mean Corpuscular Hemoglobin 32.3 pg (27.0-31.0); Mean Corpuscular Volume 96.3 fL (78.0-98.0); Mean Platelet Volume 6.8 fL (7.4-10.4); Platelet Count 233 thou/uL (130-400); RBC Distribution Width 11.4 % (11.5-14.5); Red Blood Cell (RBC) Count 2.79 mill/uL (4.70-6.10); White Blood Cell (WBC) Count 4.5 thou/uL (4.8-10.8)
[2018-09-01] MEDS: Levothyroxine Sodium 50 MCG TAB PO SCH (05:44)
[2018-09-01] MEDS: Multivitamin W/ Minerals 1 TAB PO SCH (09:58)
[2018-09-01] MEDS: Tamsulosin HCl 0.4 MG CAP PO SCH ×2 (09:58→21:27)
[2018-09-01] MEDS: DULoxetine 30 MG CAP PO SCH (09:58)
[2018-09-01] MEDS: Lisinopril 20 MG TAB PO SCH (09:58)
[2018-09-01] MEDS: Amlodipine 10 MG TAB PO SCH (09:58)
[2018-09-01] MEDS: Aspirin 325 MG TAB PO SCH (09:58)
[2018-09-01] MEDS: Polyethylene Glycol 3350 17 GM Packet PO SCH (09:59)
[2018-09-01] MEDS: Pantoprazole 40 MG VIAL IVP SCH (09:59)
--- NOTE | 2018-09-01 14:49 | PRG ---
DATE OF SERVICE: 09/01/2018 SUBJECTIVE: Carlos is a 67-year-old male, who is postop day 5 from a press-fit right total hip arthroplasty. He convalesced in the intensive care unit over the weekend due to his progression of his ileus and what appeared to be some metabolic disturbances to include creatinine going up to 1.67 and poorly controlled diabetes and hypophosphatemia. His creatinine improved with fluids and he was transferred back to the floor yesterday evening. Today, he would like to go home, but I think that the Medicine Service is still observing the patient. Dr. Lewis was also consulted to manage him nonoperatively with NG tube. OBJECTIVE: VITAL SIGNS: Temperature 99.5, pulse 86, blood pressure 141/73, O2 saturation is 96% on room air, his respiratory rate is 18 and unlabored. GENERAL: He is alert and oriented to person, place, time, situation, grossly nonfocal, appropriate response with examiner. MUSCULOSKELETAL: Visual inspection of the right hip demonstrates his incision to be clean and closed. No erythema. No strikethrough. No malrotation or shortening. IMPRESSION: 1. A 67-year-old white male, postop day 5, right total hip arthroplasty. 2. Anemia. 3. Acute renal insufficiency, improving. 4. Ileus, slowly improving. PLAN: We will start him back on clear liquids and slowly advance the diet he already does, keep him 1 more night and discharge tomorrow. Job ID: [id number]
[2018-09-01] MEDS: Atorvastatin Calcium 10 MG TAB PO SCH (21:27)
[2018-09-01] MEDS: traZODone HCl 50 MG TAB PO SCH (21:27)
[2018-09-01] MEDS: Enoxaparin Sodium 40 MG/0.4 ML SYRINGE SC SCH (21:28)
[2018-09-01] MEDS: Spironolactone 25 MG TAB PO SCH (21:28)
[2018-09-01] MEDS: Prazosin HCl 1 MG CAP PO SCH (21:28)
[2018-09-01] MEDS: Citrucel 500 MG TAB PO SCH (21:28)
--- NOTE | 2018-09-01 21:41 | PDOC.PN ---
- Subjective Encounter Start Date: 09/01/18 Encounter Start Time: 09:00 pt is tolerating his diet well, no dyspnea, pain controlled Patient seen and examined. No new complaints. No overnight events - Objective Resuscitation Status - Order Detail: 08/28/18 08:37 Resuscitation Status Routine Resuscitation Status: FULL: Full Resuscitation MAR Reviewed: Yes Vital Signs & Weight: Vital Signs (12 hours) Temp Pulse Resp BP BP Pulse Ox 09/01/18 20:00 98.5 F 91 18 155/87 H 94 L 09/01/18 18:41 86 16 96 09/01/18 15:09 98.2 F 90 20 165/90 H 94 L 09/01/18 14:20 88 18 93 L 09/01/18 11:16 99.5 F 86 18 149/97 H 96 09/01/18 09:58 86 141/73 H Weight Admit Weight 247 lb Weight 247 lb Most Recent Monitor Data Heart Rate from ECG 90 NIBP 156/89 NIBP BP-Mean 111 Respiration from ECG 23 SpO2 92 I&O: 08/31/18 09/01/18 09/02/18 06:59 06:59 06:59 Intake Total 3950 2340 1230 Output Total 1200 850 350 Balance 2750 1490 880 Result Diagrams: 09/01/18 03:37 08/31/18 03:45 Phys Exam - Physical Examination Constitutional: NAD HEENT: PERRLA, moist MMs, sclera anicteric Neck: no JVD, supple Respiratory: no wheezing, no rales, no rhonchi Cardiovascular: RRR, no significant murmur, no rub Gastrointestinal: soft, non-tender, no distention, positive bowel sounds Musculoskeletal: no edema, pulses present Neurological: non-focal, normal sensation, moves all 4 limbs Lymphatic: no nodes Psychiatric: normal affect, A&O x 3 Skin: no rash, normal turgor Dx/Plan (1) Abdominal distension Code(s): R14.0 - ABDOMINAL DISTENSION (GASEOUS) Status: Resolved Comment: due to ileus (2) Ileus Code(s): K56.7 - ILEUS, UNSPECIFIED Status: Resolved (3) NGOC (acute kidney injury) Code(s): N17.9 - ACUTE KIDNEY FAILURE, UNSPECIFIED Status: Resolved (4) Status post right hip replacement Code(s): Z96.641 - PRESENCE OF RIGHT ARTIFICIAL HIP JOINT Status: Acute (5) Anxiety and depression Code(s): F41.9 - ANXIETY DISORDER, UNSPECIFIED; F32.9 - MAJOR DEPRESSIVE DISORDER, SINGLE EPISODE, UNSPECIFIED Status: Chronic (6) Dyslipidemia Code(s): E78.5 - HYPERLIPIDEMIA, UNSPECIFIED Status: Chronic (7) Hypertension Code(s): I10 - ESSENTIAL (PRIMARY) HYPERTENSION Status: Chronic (8) Hypothyroidism Code(s): E03.9 - HYPOTHYROIDISM, UNSPECIFIED Status: Chronic (9) Obesity (BMI 30-39.9) Code(s): E66.9 - OBESITY, UNSPECIFIED Status: Chronic (10) BPH (benign prostatic hyperplasia) Code(s): N40.0 - BENIGN PROSTATIC HYPERPLASIA WITHOUT LOWER URINRY TRACT SYMP Status: Chronic (11) GERD (gastroesophageal reflux disease) Code(s): K21.9 - GASTRO-ESOPHAGEAL REFLUX DISEASE WITHOUT ESOPHAGITIS Status: Chronic (12) Hypothyroidism Code(s): E03.9 - HYPOTHYROIDISM, UNSPECIFIED Status: Chronic (13) Anemia, normocytic normochromic Code(s): D64.9 - ANEMIA, UNSPECIFIED Status: Acute (14) Atelectasis Status: Acute - Plan cont current plan of care, PT/OT * medication reviewed as below * symptomatic treatment * DC zosyn * medically stable for discharge when primary team OK. * DC IVF Review of Systems - Review of Systems ENT: negative: Ear Pain, Ear Discharge, Nose Pain, Nose Discharge, Nose Congestion, Mouth Pain, Mouth Swelling, Throat Pain, Throat Swelling, Other Respiratory: negative: Cough, Dry, Shortness of Breath, Hemoptysis, SOB with Excertion, Pleuritic Pain, Sputum, Wheezing Cardiovascular: negative: chest pain, palpitations, orthopnea, paroxysmal nocturnal dyspnea, edema, light headedness, other Gastrointestinal: negative: Nausea, Vomiting, Abdominal Pain, Diarrhea, Constipation, Melena, Hematochezia, Other Genitourinary: negative: Dysuria, Frequency, Incontinence, Hematuria, Retention , Other Musculoskeletal: negative: Neck Pain, Shoulder Pain, Arm Pain, Back Pain, Hand Pain, Leg Pain, Foot Pain, Other - Medications/Allergies Allergies/Adverse Reactions: Allergies Allergy/AdvReac Type Severity Reaction Status Date / Time No Known Drug Allergies Allergy Verified 03/25/18 12:10 Medications: Current Medications Acetaminophen (Tylenol) 1,000 mg PO Q6H PRN PRN Reason: Moderate to Severe Pain (6-10) Albuterol/Ipratropium (Duoneb) 3 ml NEB [id number] [facility] Last Admin: 09/01/18 18:41 Dose: 3 ml Amlodipine Besylate (Norvasc) 10 mg PO DAILY [facility] Last Admin: 09/01/18 09:58 Dose: 10 mg Aspirin (Aspirin) 325 mg PO DAILY [facility] Last Admin: 09/01/18 09:58 Dose: 325 mg Atorvastatin Calcium (Lipitor) 10 mg PO HS [facility] Last Admin: 09/01/18 21:27 Dose: 10 mg Diphenhydramine HCl (Benadryl) 25 mg IM Q3H PRN PRN Reason: Itching Diphenhydramine HCl (Benadryl) 25 mg IVP Q3H PRN PRN Reason: Itching Duloxetine HCl (Cymbalta) 30 mg PO QAM [facility] Last Admin: 09/01/18 09:58 Dose: 30 mg Emollient Cream (Hydrocerin Cream) 0 gm TOP PRN PRN PRN Reason: Itching Enoxaparin Sodium (Lovenox) 40 mg SC 2100 [facility] Last Admin: 09/01/18 21:28 Dose: 40 mg Fentanyl (Sublimaze) 50 mcg SLOW IVP Q1H PRN PRN Reason: Pain Hydralazine HCl (Apresoline) 10 mg SLOW IVP Q4H PRN PRN Reason: SBP > 180 and HR < 70 Sodium Chloride (Normal Saline 0.9%) 1,000 mls @ 150 mls/hr IV .Q6H40M [facility] Last Admin: 09/01/18 13:40 Dose: Not Given Ibuprofen (Motrin) 600 mg PO Q6H PRN PRN Reason: Pain Iron/Minerals/Multivitamins (Theragran M) 1 tab PO DAILY [facility] Last Admin: 09/01/18 09:58 Dose: 1 tab Ketorolac Tromethamine (Toradol) 15 mg IVP Q6H PRN PRN Reason: Pain Stop: 09/04/18 17:19 Last Admin: 08/30/18 22:07 Dose: 15 mg Levothyroxine Sodium (Synthroid) 50 mcg PO 0600 [facility] Last Admin: 06/24/19 05:44 Dose: 50 mcg Lisinopril (Zestril) 40 mg PO DAILY [facility] Last Admin: 09/01/18 09:58 Dose: 40 mg Methylcellulose (Citrucel) 2,000 mg PO [facility] Last Admin: 09/01/18 21:28 Dose: 2,000 mg Miscellaneous Information (Communication Order-Pharmacy) 1 each FS ASDIR [facility] Morphine Sulfate (Morphine) 2 mg SLOW IVP Q2H PRN PRN Reason: Pain Morphine Sulfate (Morphine) 4 mg SLOW IVP Q2H PRN PRN Reason: Pain Naloxone HCl (Narcan) 0.2 mg IV Q5MIN PRN PRN Reason: RR <=8 OR OBTUNDED/UNAROUSABLE Naloxone HCl (Narcan) 0.1 mg IVP Q15MIN PRN PRN Reason: URINARY RETENTION Ondansetron HCl (Zofran) 4 mg IVP Q6H PRN PRN Reason: Nausea/Vomiting Last Admin: 08/29/18 01:45 Dose: 4 mg Ondansetron HCl (Zofran Odt) 4 mg SL Q6H PRN PRN Reason: Nausea/Vomiting Pantoprazole Sodium (Protonix) 40 mg IVP DAILY [facility] Last Admin: 09/01/18 09:59 Dose: 40 mg Polyethylene Glycol (Miralax) 17 gm PO DAILY [facility] Last Admin: 09/01/18 09:59 Dose: 17 gm Prazosin HCl (Minipress) 2 mg PO [facility] Last Admin: 09/01/18 21:28 Dose: 2 mg Promethazine HCl (Phenergan Suppository) 25 mg VA Q4H PRN PRN Reason: Nausea/Vomiting Sodium Chloride (Flush - Normal Saline) 10 ml IVF PRN PRN PRN Reason: Saline Flush Sodium Chloride ([place] Nasal [place] 0.65%) 0 ml EA NARE QIDPRN PRN PRN Reason: Nasal Congestion Spironolactone (Aldactone) 25 mg PO HS [facility] Last Admin: 09/01/18 21:28 Dose: 25 mg Tamsulosin HCl (Flomax) 0.4 mg PO HS [facility] Last Admin: 09/01/18 21:27 Dose: 0.4 mg Tamsulosin HCl (Flomax) 0.4 mg PO DAILY [facility] Last Admin: 09/01/18 09:58 Dose: 0.4 mg Throat Lozenges (Cepastat Lozenges) 1 td PO Q2H PRN PRN Reason: Sore Throat Tramadol HCl (Ultram) 50 mg PO Q6H PRN PRN Reason: Pain 1-5 Trazodone HCl (Desyrel) 50 mg PO [facility] Last Admin: 09/01/18 21:27 Dose: 50 mg
[2018-09-02] MEDS: Levothyroxine Sodium 50 MCG TAB PO SCH (05:48)
[2018-09-02] MEDS: Aspirin 325 MG TAB PO SCH (08:34)
[2018-09-02] MEDS: DULoxetine 30 MG CAP PO SCH (08:34)
[2018-09-02] MEDS: Multivitamin W/ Minerals 1 TAB PO SCH (08:34)
[2018-09-02] MEDS: Amlodipine 10 MG TAB PO SCH (08:34)
[2018-09-02] MEDS: Tamsulosin HCl 0.4 MG CAP PO SCH (08:36)
[2018-09-02] MEDS: Pantoprazole 40 MG VIAL IVP SCH (08:37)
[2018-09-02] MEDS: Polyethylene Glycol 3350 17 GM Packet PO SCH (08:37)
[2018-09-02] MEDS: Lisinopril 20 MG TAB PO SCH (08:38)
--- NOTE | 2018-09-02 11:00 | DIS ---
DATE OF ADMISSION: 08/27/2018 DATE OF DISCHARGE: 09/02/2018 PRIMARY CARE PHYSICIAN: Dr. Fermin Zuniga. DISCHARGE DISPOSITION: Home. PRIMARY DISCHARGE DIAGNOSES: 1. Status post right total hip replacement. 2. Abdominal distention due to ileus. 3. Acute kidney injury, improved. 4. Atelectasis. SECONDARY DISCHARGE DIAGNOSES: 1. Gastroesophageal reflux disease. 2. Benign enlargement of prostate. 3. Obesity with BMI 39. 4. Hypothyroidism. 5. Hypertension. 6. Dyslipidemia. 7. Anxiety and depression. 8. Normocytic normochromic anemia. 9. Osteoarthritis. PRIMARY PROCEDURE/OPERATION: Dr. Agosto did right total hip replacement. RADIOLOGICAL INVESTIGATION: After surgery, the patient had hip x-ray, which was unremarkable. Abdomen x-ray showed gaseous prominence. Abdomen and pelvis CT scan showed colonic distention consistent with ileus. Subsequently, the patient had several abdominal x-ray. SIGNIFICANT LABORATORY DATA: WBC 4.5, hemoglobin 9.0, platelet 233. Sodium 141, potassium 3.7, BUN 16, creatinine 0.64, calcium 8.3, AST 58, ALT 50, alkaline phosphatase 69, albumin 2.9. DISCHARGE MEDICATIONS: 1. Amlodipine 10 mg daily. 2. Aspirin 325 mg p.o. daily. 3. Lipitor 10 mg p.o. q.h.s. 4. Cymbalta 30 mg daily. 5. Synthroid 50 mcg p.o. daily. 6. Methylcellulose 500 mg four tablets at bedtime. 7. Omeprazole 20 mg daily. 8. Minipress 2 mg at bedtime. 9. Aldactone 25 mg daily. 10. Flomax 0.4 mg daily. 11. Trazodone 50 mg p.o. q.h.s. 12. MiraLAX 17 g p.o. daily. 13. The patient was on lisinopril 40 mg p.o. daily, but before admission his primary care physician changed to different medication and sent to his pharmacy. The patient is not able to recall the name of medication. Lisinopril was discontinued because lisinopril was making him cough. ALLERGIES: THE PATIENT HAS A LISINOPRIL ALLERGY BECAUSE THAT GIVES HIM COUGH. CONTRAINDICATION: None. CODE STATUS: Full code. INPATIENT DIETARY MANAGER: Dr. Lewis was consulted for adynamic ileus. Sound Team was consulted for medical management. Dr. Agosto was primary while in hospital. TEST RESULTS PENDING ON DISCHARGE: None. DISCHARGE PLAN: Posthospital, the patient will follow up with Dr. Agosto on September 16, 2018, at 8:30 a.m. The patient will make appointment with primary care physician. HOSPITAL COURSE: A 67-year-old male, who was admitted by Dr. Agosto on August 27, 2018. The patient underwent right hip replacement. Postprocedure, the patient had hip x-ray, which was unremarkable. The patient was at [facility]. At that point, Sound Team was consulted for medical comanagement. Postoperatively immediately, the patient was much better. The patient had epidural in place for pain control. The patient had abdominal distention while in hospital and subsequently, we did abdomen x-ray and abdomen and pelvis CT scan and we found that the patient has adynamic ileus, which we suspected from either being immobilized versus pain medication. He was treated conservatively with NG tube with low intermittent suction, ambulation, physical therapy. The patient had improvement in adynamic ileus. At that point, we started liquid diet and advanced diet to regular diet, which he was tolerating very well. At one point, the patient also required IMCU transfer for his increased respiratory rate and fever, but subsequently, the patient was stabilized without doing any intervention. He was transferred back to surgical floor and he was doing very well with physical therapy. He did not require any placement. I have seen and examined the patient at bedside today. He is completely asymptomatic. He is doing great. He has no complaints. REVIEW OF SYSTEMS: All review of systems reviewed with him and negative. PHYSICAL EXAMINATION: VITAL SIGNS: Currently, temperature 99.1, pulse 90, respiratory rate 20, saturation 93% on room air, blood pressure 137/98, weight 247 pounds. GENERAL: The patient is currently alert, awake, in no obvious acute distress. HEENT: Normocephalic, atraumatic. LUNGS: Clear to auscultation without any rhonchi or rales. CARDIAC: S1 and S2 regular. No murmur. No gallop. No rub. ABDOMEN: Obesity present. Bowel sounds present. No peritoneal sign. No guarding. No rigidity. No rebound. BACK: Unremarkable. NEUROLOGIC: Nonfocal examination. The patient is medically stable for discharge today. Job ID: [id number]
[2018-09-02 11:16] VITALS: BP 137/75; TEMP 98.4
--- NOTE | 2018-09-02 11:43 | PDOC.PN ---
- Subjective Encounter Start Date: 09/02/18 Encounter Start Time: 09:30 Patient seen and examined. No new complaints. No overnight events - Objective Resuscitation Status - Order Detail: 08/28/18 08:37 Resuscitation Status Routine Resuscitation Status: FULL: Full Resuscitation MAR Reviewed: Yes Vital Signs & Weight: Vital Signs (12 hours) Temp Pulse Resp BP BP BP Pulse Ox 09/02/18 11:09 98.4 F 77 18 137/75 95 09/02/18 08:45 09/02/18 08:38 141/73 H 09/02/18 08:34 90 09/02/18 07:32 99.1 F 90 20 137/98 H 93 L 09/02/18 07:06 90 16 09/02/18 03:57 97.8 F 90 18 161/89 H 94 L 09/02/18 00:00 98.1 F 92 18 163/88 H 94 L Pulse Ox 09/02/18 11:09 09/02/18 08:45 98 09/02/18 08:38 09/02/18 08:34 09/02/18 07:32 09/02/18 07:06 09/02/18 03:57 09/02/18 00:00 Weight Admit Weight 247 lb Weight 247 lb Most Recent Monitor Data Heart Rate from ECG 90 NIBP 156/89 NIBP BP-Mean 111 Respiration from ECG 23 SpO2 92 I&O: 09/01/18 09/02/18 09/03/18 06:59 06:59 06:59 Intake Total 2340 2190 Output Total 850 1650 Balance 1490 540 Result Diagrams: 09/01/18 03:37 08/31/18 03:45 Phys Exam - Physical Examination Constitutional: NAD HEENT: PERRLA, moist MMs, sclera anicteric Neck: no JVD, supple Respiratory: no wheezing, no rales, no rhonchi Cardiovascular: RRR, no significant murmur, no rub Gastrointestinal: soft, non-tender, no distention, positive bowel sounds Musculoskeletal: no edema, pulses present Neurological: non-focal, normal sensation Lymphatic: no nodes Psychiatric: normal affect, A&O x 3 Skin: no rash, normal turgor Dx/Plan (1) Abdominal distension Code(s): R14.0 - ABDOMINAL DISTENSION (GASEOUS) Status: Resolved Comment: due to ileus (2) Ileus Code(s): K56.7 - ILEUS, UNSPECIFIED Status: Resolved (3) NGOC (acute kidney injury) Code(s): N17.9 - ACUTE KIDNEY FAILURE, UNSPECIFIED Status: Resolved (4) Status post right hip replacement Code(s): Z96.641 - PRESENCE OF RIGHT ARTIFICIAL HIP JOINT Status: Acute (5) Anxiety and depression Code(s): F41.9 - ANXIETY DISORDER, UNSPECIFIED; F32.9 - MAJOR DEPRESSIVE DISORDER, SINGLE EPISODE, UNSPECIFIED Status: Chronic (6) Dyslipidemia Code(s): E78.5 - HYPERLIPIDEMIA, UNSPECIFIED Status: Chronic (7) Hypertension Code(s): I10 - ESSENTIAL (PRIMARY) HYPERTENSION Status: Chronic (8) Hypothyroidism Code(s): E03.9 - HYPOTHYROIDISM, UNSPECIFIED Status: Chronic (9) Obesity (BMI 30-39.9) Code(s): E66.9 - OBESITY, UNSPECIFIED Status: Chronic (10) BPH (benign prostatic hyperplasia) Code(s): N40.0 - BENIGN PROSTATIC HYPERPLASIA WITHOUT LOWER URINRY TRACT SYMP Status: Chronic (11) GERD (gastroesophageal reflux disease) Code(s): K21.9 - GASTRO-ESOPHAGEAL REFLUX DISEASE WITHOUT ESOPHAGITIS Status: Chronic (12) Hypothyroidism Code(s): E03.9 - HYPOTHYROIDISM, UNSPECIFIED Status: Chronic (13) Anemia, normocytic normochromic Code(s): D64.9 - ANEMIA, UNSPECIFIED Status: Acute (14) Atelectasis Status: Acute - Plan cont current plan of care, plan discussed w/ family * medication reviewed as below * symptomatic treatment * see discharge keyana. Review of Systems - Review of Systems ENT: negative: Ear Pain, Ear Discharge, Nose Pain, Nose Discharge, Nose Congestion, Mouth Pain, Mouth Swelling, Throat Pain, Throat Swelling, Other Respiratory: negative: Cough, Dry, Shortness of Breath, Hemoptysis, SOB with Excertion, Pleuritic Pain, Sputum, Wheezing Cardiovascular: negative: chest pain, palpitations, orthopnea, paroxysmal nocturnal dyspnea, edema, light headedness, other Gastrointestinal: negative: Nausea, Vomiting, Abdominal Pain, Diarrhea, Constipation, Melena, Hematochezia, Other Genitourinary: negative: Dysuria, Frequency, Incontinence, Hematuria, Retention , Other Musculoskeletal: negative: Neck Pain, Shoulder Pain, Arm Pain, Back Pain, Hand Pain, Leg Pain, Foot Pain, Other - Medications/Allergies Allergies/Adverse Reactions: Allergies Allergy/AdvReac Type Severity Reaction Status Date / Time No Known Drug Allergies Allergy Verified 03/25/18 12:10 Medications: Current Medications Acetaminophen (Tylenol) 1,000 mg PO Q6H PRN PRN Reason: Moderate to Severe Pain (6-10) Albuterol/Ipratropium (Duoneb) 3 ml NEB [id number] [facility] Last Admin: 09/02/18 07:06 Dose: 3 ml Amlodipine Besylate (Norvasc) 10 mg PO DAILY [facility] Last Admin: 09/02/18 08:34 Dose: 10 mg Aspirin (Aspirin) 325 mg PO DAILY [facility] Last Admin: 09/02/18 08:34 Dose: 325 mg Atorvastatin Calcium (Lipitor) 10 mg PO HS [facility] Last Admin: 09/01/18 21:27 Dose: 10 mg Diphenhydramine HCl (Benadryl) 25 mg IM Q3H PRN PRN Reason: Itching Diphenhydramine HCl (Benadryl) 25 mg IVP Q3H PRN PRN Reason: Itching Duloxetine HCl (Cymbalta) 30 mg PO QAM [facility] Last Admin: 09/02/18 08:34 Dose: 30 mg Emollient Cream (Hydrocerin Cream) 0 gm TOP PRN PRN PRN Reason: Itching Enoxaparin Sodium (Lovenox) 40 mg SC 2100 [facility] Last Admin: 09/01/18 21:28 Dose: 40 mg Fentanyl (Sublimaze) 50 mcg SLOW IVP Q1H PRN PRN Reason: Pain Hydralazine HCl (Apresoline) 10 mg SLOW IVP Q4H PRN PRN Reason: SBP > 180 and HR < 70 Ibuprofen (Motrin) 600 mg PO Q6H PRN PRN Reason: Pain Iron/Minerals/Multivitamins (Theragran M) 1 tab PO DAILY [facility] Last Admin: 09/02/18 08:34 Dose: 1 tab Ketorolac Tromethamine (Toradol) 15 mg IVP Q6H PRN PRN Reason: Pain Stop: 09/04/18 17:19 Last Admin: 08/30/18 22:07 Dose: 15 mg Levothyroxine Sodium (Synthroid) 50 mcg PO 0600 [facility] Last Admin: 09/02/18 05:48 Dose: 50 mcg Lisinopril (Zestril) 40 mg PO DAILY [facility] Last Admin: 09/02/18 08:38 Dose: Not Given Methylcellulose (Citrucel) 2,000 mg PO [facility] Last Admin: 09/01/18 21:28 Dose: 2,000 mg Miscellaneous Information (Communication Order-Pharmacy) 1 each FS ASDIR [facility] Morphine Sulfate (Morphine) 2 mg SLOW IVP Q2H PRN PRN Reason: Pain Morphine Sulfate (Morphine) 4 mg SLOW IVP Q2H PRN PRN Reason: Pain Naloxone HCl (Narcan) 0.2 mg IV Q5MIN PRN PRN Reason: RR <=8 OR OBTUNDED/UNAROUSABLE Naloxone HCl (Narcan) 0.1 mg IVP Q15MIN PRN PRN Reason: URINARY RETENTION Ondansetron HCl (Zofran) 4 mg IVP Q6H PRN PRN Reason: Nausea/Vomiting Last Admin: 08/29/18 01:45 Dose: 4 mg Ondansetron HCl (Zofran Odt) 4 mg SL Q6H PRN PRN Reason: Nausea/Vomiting Pantoprazole Sodium (Protonix) 40 mg IVP DAILY [facility] Last Admin: 09/02/18 08:37 Dose: 40 mg Polyethylene Glycol (Miralax) 17 gm PO DAILY [facility] Last Admin: 09/02/18 08:37 Dose: 17 gm Prazosin HCl (Minipress) 2 mg PO [facility] Last Admin: 09/01/18 21:28 Dose: 2 mg Promethazine HCl (Phenergan Suppository) 25 mg ND Q4H PRN PRN Reason: Nausea/Vomiting Sodium Chloride (Flush - Normal Saline) 10 ml IVF PRN PRN PRN Reason: Saline Flush Last Admin: 09/02/18 08:38 Dose: 10 ml Sodium Chloride ([place] Nasal [place] 0.65%) 0 ml EA NARE QIDPRN PRN PRN Reason: Nasal Congestion Spironolactone (Aldactone) 25 mg PO [facility] Last Admin: 09/01/18 21:28 Dose: 25 mg Tamsulosin HCl (Flomax) 0.4 mg PO [facility] Last Admin: 09/01/18 21:27 Dose: 0.4 mg Tamsulosin HCl (Flomax) 0.4 mg PO DAILY [facility] Last Admin: 09/02/18 08:36 Dose: 0.4 mg Throat Lozenges (Cepastat Lozenges) 1 td PO Q2H PRN PRN Reason: Sore Throat Tramadol HCl (Ultram) 50 mg PO Q6H PRN PRN Reason: Pain 1-5 Trazodone HCl (Desyrel) 50 mg PO [facility] Last Admin: 09/01/18 21:27 Dose: 50 mg
== END 2018-09-02 12:40 | disposition home or self-care (01) | DRG 470 ==
LOC: SURG A 08-27 07:11 → SURG B 08-27 13:07 → IMCU/EMU 08-29 22:15 → SJJU 08-31 23:09
PROVIDERS: ADMIT Orthopaedic Surgery; ATTEND Orthopaedic Surgery
PROC: 0SR904A Replacement of Right Hip Joint with Ceramic on Polyethylene Synthetic Substitute, Uncemented, Open Approach (ICD-10-PCS; principal; 2018-08-27)
PROC: 0DH67UZ Insertion of Feeding Device into Stomach, Via Natural or Artificial Opening (ICD-10-PCS; 2018-08-29)
DX: M16.11 Unilateral primary osteoarthritis, right hip (principal); E87.1 Hypo-osmolality and hyponatremia; N17.9 Acute kidney failure, unspecified; J98.11 Atelectasis; K56.0 Paralytic ileus; I10 Essential (primary) hypertension; M10.9 Gout, unspecified; M47.817 Spondylosis without myelopathy or radiculopathy, lumbosacral region; Z96.652 Presence of left artificial knee joint; F41.9 Anxiety disorder, unspecified; F32.9 Major depressive disorder, single episode, unspecified; N40.0 Benign prostatic hyperplasia without lower urinary tract symptoms; E03.9 Hypothyroidism, unspecified; E78.5 Hyperlipidemia, unspecified; E66.9 Obesity, unspecified; K21.9 Gastro-esophageal reflux disease without esophagitis; R73.9 Hyperglycemia, unspecified; D64.9 Anemia, unspecified; Z86.73 Personal history of transient ischemic attack (TIA), and cerebral infarction without residual deficits; Z68.39 Body mass index [BMI] 39.0-39.9, adult; Z79.899 Other long term (current) drug therapy; Z79.82 Long term (current) use of aspirin; Z98.1 Arthrodesis status
CPT/HCPCS: 36415; 74018; 74019; 74176; 80048; 80053; 83735; 84100; 85027; 94640; C9113; J0131; J0690; J1100; J1650; J1885; J2001; J2250; J2405; J2543; J2704; J3010; J3370; J3490; J7050; J7620

== ENCOUNTER 2019-02-18 11:10 | Outpatient (CLI) | payer BC ==
[2019-02-18 12:18] LABS: Anion Gap 10 mmol/L (10-20); BUN (Urea Nitrogen) 24 mg/dL (8.4-25.7); Calc. Creatinine Clearance 0 mL/min (70-130); Carbon Dioxide 27 mmol/L (23-31); Chloride 104 mmol/L (98-107); Estimated GFR-MDRD 80; Glucose 99 mg/dL (80-115); Potassium 4.2 mmol/L (3.5-5.1); Sodium 137 mmol/L (136-145)
== END 2019-02-18 11:11 | disposition home or self-care (01) ==
LOC: LABBT 11:10
PROVIDERS: ATTEND Neurological Surgery
DX: Z01.818 Encounter for other preprocedural examination (principal); M48.062 Spinal stenosis, lumbar region with neurogenic claudication
CPT/HCPCS: 80048; 93005; 93010

== ENCOUNTER 2019-02-25 06:31 | Day surgery (SDC) | payer BC ==
[2019-02-18 11:17] VITALS: BMI 40.3
--- NOTE | 2019-02-24 15:05 | HP ---
HISTORY OF PRESENT ILLNESS: Mr. Weinstein is a very pleasant gentleman, here today for evaluation of roughly 18 months worth of right-sided lower extremity pains and lower back pain. This fits well with a right L5 pattern. Initially, he had severe hip pain as well and then ultimately had a total hip replacement. He has recovered nicely from that. Dr. Sandoval in August has injected this total of 3 times. The first of which made essentially all this pain resolved. In the latter, two have not provided much of any relief. PHYSICAL EXAMINATION: GENERAL: He is alert and oriented x3. Gait is antalgic and slow. He is using a cane for ambulation assistance. EXTREMITIES: Lower extremity motor exam is normal. Positive straight leg raise on the right, negative on the left. MRI from the [facility] reveals [id number] central canal stenosis and moderate lateral recess stenosis at L4-L5 bilaterally. This would explain his symptoms quite well. PAST MEDICAL HISTORY: Significant for hypertension, hypothyroidism, gastroesophageal reflux disease, benign prostatic hypertrophy, and anxiety. CURRENT MEDICATIONS: 1. Amlodipine. 2. Levothyroxine. 3. Omeprazole. 4. Spironolactone. 5. Tamsulosin. 6. Losartan. 7. Duloxetine. 8. Aspirin. 9. Atorvastatin. 10. Trazodone. 11. Prazosin. PAST SURGICAL HISTORY: Lithotripsy x2 and right total hip replacement. ALLERGIES: LISINOPRIL. ASSESSMENT: Lumbar stenosis and radiculopathy. PLAN: Dr. Velasquze met with the patient, reviewed imaging, advocated for L4-L5 decompression. He explained to the patient the risks, benefits, and alternatives of the procedure. The patient expressed understanding and elected to move forward with surgery as discussed. I do believe the patient is mentally competent and capable of making medical decisions for himself. We will move forward with surgery as planned. Job ID: [id number]
[2019-02-25] MEDS ORDERED: Bupivacaine PF 0.5% 30 ML VIAL ONE (07:02)
[2019-02-25] MEDS ORDERED: Thrombin 5000 UNITS/5 ML VIAL ONE (07:02)
[2019-02-25] MEDS ORDERED: Fentanyl 100 MCG/2 ML VIAL ONE ×2 (08:15→10:13)
[2019-02-25] MEDS ORDERED: Tamsulosin HCl 0.4 MG CAP ONE (11:08)
--- NOTE | 2019-02-25 12:12 | OP ---
DATE OF PROCEDURE: 02/25/2019 FOLDER HAND: Jakob Banks PA-C INDICATION: Pain. DIAGNOSIS: Lumbar stenosis with claudication and radiculopathy. PROCEDURE PERFORMED: L4-L5 decompression. ANESTHESIA: General. DESCRIPTION OF PROCEDURE: The patient was brought into the operating room and placed under general anesthesia. He was flipped from the supine to prone position on the operating room table. A linear incision was planned over the L4-L5 segment. After prepping and draping and after an appropriate operative pause, the incision was created. The soft tissues were swept away from midline. Self-retaining retractors were placed in the wound for optimal exposure. After confirming appropriate level with C-arm fluoroscopy, an Adson rongeur was used to remove the spinous process along the inferior aspect of L4 and the superior aspect of L5. High-speed cutting drill bit as well as 2, 3, and 4 mm Kerrisons were then used to perform a laminectomy and the laminectomy was extended laterally to encompass the medial aspect of the facet joints in order to decompress the central canal as well as the lateral recesses at the L4-L5 segment. After completing the decompression, the wound was irrigated. Hemostasis was maintained throughout. The wound was then closed in anatomic layers and a pressure dressing was applied. There were no known procedural complications. Job ID: [id number]
[2019-02-25] MEDS ORDERED: Glycopyrrolate 0.2 MG/ML 5 ML SYRINGE ONE (12:16)
[2019-02-25] MEDS ORDERED: ePHEDrine/0.9% NaCl/PF SYRINGE 50 mg/10 ml ONE (12:16)
[2019-02-25] MEDS ORDERED: PROPOFOL 200 MG/20 ML VIAL ONE (12:16)
[2019-02-25] MEDS ORDERED: Dexamethasone 20 MG/5 ML VIAL ONE (12:16)
[2019-02-25] MEDS ORDERED: Ondansetron PF 4 MG/2 ML Vial ONE (12:16)
[2019-02-25] MEDS ORDERED: Rocuronium Bromide 10 MG/ML (10ML VIAL) ONE (12:16)
[2019-02-25] MEDS ORDERED: Metoclopramide HCl 10 MG/2 ML VIAL ONE (12:16)
== END 2019-02-25 12:07 | disposition home or self-care (01) ==
LOC: SDC 06:31
PROVIDERS: ATTEND Neurological Surgery
PROC: 01NB0ZZ Release Lumbar Nerve, Open Approach (ICD-10-PCS; principal; 2019-02-25)
DX: M48.062 Spinal stenosis, lumbar region with neurogenic claudication (principal); M54.16 Radiculopathy, lumbar region; I10 Essential (primary) hypertension; K21.9 Gastro-esophageal reflux disease without esophagitis; N40.0 Benign prostatic hyperplasia without lower urinary tract symptoms; F41.9 Anxiety disorder, unspecified; Z79.82 Long term (current) use of aspirin; Z79.899 Other long term (current) drug therapy; Z96.641 Presence of right artificial hip joint
CPT/HCPCS: 76000; J0131; J0690; J1100; J2405; J2704; J2765; J3010; S0020

== ENCOUNTER 2019-05-13 06:07 | Day surgery (SDC) | payer BC ==
--- NOTE | 2019-05-12 07:38 | HP ---
HISTORY OF PRESENT ILLNESS: The patient is a 68-year-old right-handed male, who has several months history of pain and tingling in median nerve distribution of both hands, right greater than left. There is mostly no specific injury. His symptoms are worse at night and persists despite to his anti-inflammatory medications and splinting. Symptoms are now interfering with day-to-day activities consisting of working, driving, and sleeping. PAST MEDICAL HISTORY: Please see the old chart. The patient has had previous total hip and total knee replacements. He had lumbar surgery in February 2019 and he has recovered from this. He has also had previous rotator cuff repair. He has history of thyroid replacement, high cholesterol, and PTH. CURRENT MEDICATIONS: Levothyroxine, amlodipine, fluoxetine, omeprazole, prazosin, spironolactone, Flomax, trazodone. ALLERGIES: HE HAS NO KNOWN ALLERGIES. FAMILY HISTORY: Otherwise unremarkable. SOCIAL HISTORY: Otherwise unremarkable. REVIEW OF SYSTEMS: Otherwise unremarkable. PHYSICAL EXAMINATION: GENERAL: Reveals a healthy male. HEENT: Unremarkable. NECK: Supple. CHEST: Clear. HEART: Regular rate and rhythm. ABDOMEN: Soft, nontender. RECTAL: Deferred. PELVIC: Deferred. EXTREMITIES: Pertinent findings related to his wrists, there is questionable thenar atrophy on the left. There is full range of motion. There is no point tenderness. There is a positive Tinel sign bilaterally. There is subjective numbness in all fingers, especially in median nerve distribution. There is good capillary refill. No definite motor deficit. IMAGING STUDIES: Electrodiagnostic studies performed by Dr. Cho consistent with mildly severe bilateral carpal tunnel syndrome, right greater than left. IMPRESSION: Bilateral carpal tunnel syndrome, right symptomatic more than left hand. PLAN: Endoscopic possible open right carpal tunnel release. I will require similar procedure on the left when he has recovered from the right. Nature of the surgery, length of recovery, and potential complications such as infection, loss of motion, incomplete relief, nerve injury, recurrence, need for additional treatment or repeat surgery were discussed in detail. Job ID: [id number] [facility]
[2019-05-12 11:47] VITALS: BMI 42.3
[2019-05-13] MEDS ORDERED: Lidocaine 1% (PF) 30 ML VIAL ONE (06:35)
[2019-05-13 06:47] LABS: #Eosinphils 0.1 thou/uL (0.0-0.7); #Lymphocytes 1.3 thou/uL (1.20-3.40); #Monocytes 0.6 thou/uL (0.11-0.59); #Neutrophils 2.1 thou/uL (1.40-6.50); %Basophils 0.4 % (0.0-1.0); %Eosinophils 3.1 % (0.0-10.0); %Lymphocytes 31.9 % (21.0-51.0); %Monocytes 14.4 % (0.0-10.0); %Neutrophils 50.3 % (42.0-75.0); Hemoglobin 12.6 g/dL (14.0-18.0); Mean Corpuscular HGB CONC 34.2 g/dL (32.0-36.0); Mean Corpuscular Hemoglobin 31.2 pg (27.0-31.0); Mean Corpuscular Volume 91.3 fL (78.0-98.0); Mean Platelet Volume 6.7 fL (7.4-10.4); Platelet Count 225 thou/uL (130-400); RBC Distribution Width 12.1 % (11.5-14.5); Red Blood Cell (RBC) Count 4.03 mill/uL (4.70-6.10); White Blood Cell (WBC) Count 4.1 thou/uL (4.8-10.8)
[2019-05-13 07:07] LABS: Anion Gap 12 mmol/L (10-20); BUN (Urea Nitrogen) 16 mg/dL (8.4-25.7); Calc. Creatinine Clearance 150 mL/min (70-130); Calcium 9.2 mg/dL (7.8-10.44); Carbon Dioxide 27 mmol/L (23-31); Chloride 105 mmol/L (98-107); Estimated GFR-MDRD Greater than 90; Glucose 115 mg/dL (80-115); Potassium 3.9 mmol/L (3.5-5.1); Sodium 140 mmol/L (136-145)
[2019-05-13] MEDS ORDERED: Midazolam HCl 2 mg/2 ml Vial ONE (07:19)
[2019-05-13] MEDS ORDERED: Fentanyl 100 MCG/2 ML VIAL ONE (08:25)
[2019-05-13] MEDS ORDERED: HYDROcodone/Acetaminophen 5/325 mg Tablet ONE (09:57)
[2019-05-13] MEDS ORDERED: PROPOFOL 200 MG/20 ML VIAL ONE (10:01)
[2019-05-13] MEDS ORDERED: Lidocaine 1% PF 5 ML VIAL ONE (10:01)
--- NOTE | 2019-05-13 10:48 | OP ---
DATE OF PROCEDURE: 05/13/2019 ANESTHESIA: General. PREOPERATIVE DIAGNOSIS: Right carpal tunnel syndrome. POSTOPERATIVE DIAGNOSIS: Right carpal tunnel syndrome. PROCEDURE PERFORMED: Right endoscopic carpal tunnel release. DESCRIPTION OF PROCEDURE: After satisfactory anesthesia was induced in supine position, the patient was prepped and draped in the routine manner. The right arm was elevated and exsanguinated with an Esmarch bandage and the tourniquet inflated to 250 mmHg. A 2 cm transverse incision was made in the proximal wrist flexion crease, carried down through the subcutaneous tissues. Bleeding points were controlled with Bovie cautery. Using sharp and blunt dissection, a distally based flap at the deep forearm fascia was developed and retracted distally. Palmaris longus tendon was retracted radially. Proximal edge of the deep forearm fascia was split under direct visualization with small scissors to make sure there was no proximal impingement on the median nerve. Synovial elevator was introduced beneath the transverse carpal ligament and the synovium cleaned from the under surface. Carpal tunnel dilators were inserted. The [employer] endoscopic carpal tunnel system was introduced beneath the transverse carpal ligament in line with the ring finger. The distal edge of the ligament was easily identified, then divided in a distal to proximal direction by pulling the trigger of the assembly and engaging the knife and withdrawing the scope proximally. This was done in several stages to make sure there was complete division of the transverse carpal ligament which was documented with video printer. After withdrawing the scope, a carpal tunnel dilator could be inserted into the carpal tunnel and there was markedly improved passage and subcutaneous position of the instrument. The scope was reintroduced into the carpal tunnel. There was wide separation of the 2 leaves of the transverse carpal ligament. The tourniquet was released after 5 minutes. There was no excessive bleeding. The scope was withdrawn. The wound was thoroughly irrigated and closed with running subcuticular 3-0 nylon. Sterile dressing was applied. The patient immobilized in a Velcro wrist splint and taken to the recovery room in stable condition. There were no apparent intraoperative complications. The estimated blood loss was negligible. The patient will be discharged home in satisfactory condition, instructed on ice, elevation, and given written wound care instructions. He has [place] 5 at home for pain. He will recheck in my office in 2 weeks or sooner if there are any problems prior to that time. Job ID: [id number]
--- NOTE | 2019-05-14 08:27 | EKG ---
Test Reason : PREOP Blood Pressure : / mmHG Vent. Rate : 072 BPM Atrial Rate : 072 BPM P-R Int : 180 ms QRS Dur : 126 ms QT Int : 422 ms P-R-T Axes : 048 -59 013 degrees QTc Int : 462 ms Normal sinus rhythm Right bundle branch block Left anterior fascicular block Bifascicular block Minimal voltage criteria for LVH, may be normal variant Abnormal ECG When compared with ECG of 18-FEB-2019 11:45, Premature ventricular complexes are no longer Present Abberant conduction is no longer Present Minimal criteria for Septal infarct are no longer Present Confirmed by DR. Crystal OCHOA ([id number]) on 05/14/2019 8:27:08 AM Referred By: TREY Confirmed By:DR. Crystal OCHOA
== END 2019-05-13 10:29 | disposition home or self-care (01) ==
LOC: SDC 06:07
PROVIDERS: ATTEND Orthopaedic Surgery
PROC: 01N54ZZ Release Median Nerve, Percutaneous Endoscopic Approach (ICD-10-PCS; principal; 2019-05-13)
DX: G56.03 Carpal tunnel syndrome, bilateral upper limbs (principal); E78.00 Pure hypercholesterolemia, unspecified; Z79.899 Other long term (current) drug therapy; Z88.8 Allergy status to other drugs, medicaments and biological substances
CPT/HCPCS: 36415; 80048; 85025; 93005; 93010; J0690; J2001; J2250; J2704; J3010

== ENCOUNTER 2019-08-21 06:50 | Outpatient (CLI) | payer BC, OTHER ==
[2019-08-21 18:14] LABS: Hemoglobin 13.7 g/dL (14.0-18.0); Mean Corpuscular HGB CONC 32.9 g/dL (32.0-36.0); Mean Platelet Volume 7.4 fL (7.4-10.4); Platelet Count 238 thou/uL (130-400); RBC Distribution Width 11.8 % (11.5-14.5); Red Blood Cell (RBC) Count 4.56 mill/uL (4.70-6.10)
[2019-08-21 18:17] LABS: Bacteria/HPF None Seen HPF (None Seen); Bilirubin Negative (Negative); Blood, Urine Negative (Negative); Clarity Clear (Clear); Glucose, Urine (Dipstick) Normal (Negative); Leukocyte Negative Leu/uL (Negative); Nitrite Negative (Negative); Protein, Urine (Dipstick) Negative (Neg-Trace); RBC/HPF 0-3 HPF (0-3); Squamous Epithelial 0-3 HPF (0-3); Urobilinogen Normal mg/dL (Less than 2); WBC/HPF 0-3 HPF (0-3)
[2019-08-21 18:21] LABS: PTT 28.2 sec (22.9-36.1); Prothrombin Time 12.8 sec (12.0-14.7)
[2019-08-21 18:44] LABS: Anion Gap 13 mmol/L (10-20); BUN (Urea Nitrogen) 20 mg/dL (8.4-25.7); Calc. Creatinine Clearance 0 mL/min (70-130); Calcium 9.5 mg/dL (7.8-10.44); Carbon Dioxide 26 mmol/L (23-31); Chloride 104 mmol/L (98-107); Estimated GFR-MDRD 74; Glucose 101 mg/dL (80-115); Potassium 4.1 mmol/L (3.5-5.1); Sodium 139 mmol/L (136-145)
[2019-08-22 12:16] LABS: SARS-CoV-2 MS2 Positive; SARS-CoV-2 N Gene Negative; SARS-CoV-2 S Gene Negative; SARS-CoV-2 orf1ab Negative
== END 2019-08-21 06:51 | disposition home or self-care (01) ==
LOC: LABBT 06:50
PROVIDERS: ATTEND Urology
DX: Z01.812 Encounter for preprocedural laboratory examination (principal); Z11.59 Encounter for screening for other viral diseases; Z12.5 Encounter for screening for malignant neoplasm of prostate; N40.1 Benign prostatic hyperplasia with lower urinary tract symptoms; R35.0 Frequency of micturition; N28.1 Cyst of kidney, acquired; G45.9 Transient cerebral ischemic attack, unspecified; N20.0 Calculus of kidney; Z87.898 Personal history of other specified conditions
CPT/HCPCS: 80048; 81001; 85027; 85610; 85730; 87086; 87635; 93005; 93010; U0003

== ENCOUNTER 2019-08-26 08:42 | Day surgery (SDC) | payer BC ==
[2019-08-20 12:41] VITALS: BMI 40.3
[2019-08-26] MEDS ORDERED: Levofloxacin 500 mg/D5W 100 ml Premix Bag ONE (09:33)
[2019-08-26] MEDS ORDERED: Phenazopyridine HCl 97.5 MG TABLET ONE (11:08)
[2019-08-26] MEDS ORDERED: PROPOFOL 200 MG/20 ML VIAL ONE (11:54)
--- NOTE | 2019-08-26 14:20 | OP ---
DATE OF PROCEDURE: 08/26/2019 PREOPERATIVE DIAGNOSES: 68-year-old male with history of benign prostatic hyperplasia. POSTOPERATIVE DIAGNOSIS: 68-year-old male with history of benign prostatic hyperplasia. PROCEDURE PERFORMED: Cystoscopy, UroLift implant x6. ANESTHESIA: TIVA. COMPLICATIONS: None apparent. DISPOSITION: To recovery room in stable condition. INDICATIONS FOR PROCEDURE AND HISTORY: Mr. Weinstein is a pleasant 68-year-old male, referred by Dr. Mays as the patient was requesting minimally-invasive approach for BPH, i.e., UroLift. The patient with history of kidney stones, followed by Dr. Mays. He did undergo cystoscopy, volume study demonstrating good candidacy for UroLift implant based on volume study. He has significant BPH symptoms of IPSS score of 25. Risks and complications of the procedure were reviewed with him in detail including, but not limited to: Bleeding, pain, infection, injury to adjacent organs, chronic pain, possible migration of implant resulting in urolithiasis warranting removal, secondary procedure such as TURP reviewed. We did discuss options of continued medical therapy versus TURP, and he desired to proceed with UroLift. DESCRIPTION OF PROCEDURE: After an informed consent was signed, the patient was taken to the operating room and placed in a dorsal lithotomy position with the genital area prepped and draped in the usual surgical sterile fashion. A 21- Vincentian cystoscope was utilized for cystoscopy, which demonstrated normal anterior urethra. Prostatic urethra was inspected demonstrating bilobar hyperplasia, moderate to severe obstruction. He has a component of a small intravesical median lobe, however, minimal. The UOs were identified away from the bladder neck and kept out of harm's way. He had diffuse bladder trabeculation consistent with chronic outlet obstruction. At this time, we transitioned to the UroLift cystoscope device with a visual obturator. We then treated his left lateral lobe first. He had good opening of the bladder neck, and a total of 6 implants were placed, three on each side demonstrating great anterior channel. Minimal bleeding was noted. He tolerated the procedure well. He will undergo voiding trial and likely be discharged without a catheter. He is discharged with ciprofloxacin for 5 days, Azo p.r.n. He will see me tomorrow for peak flow PVR check. He is advised to hold his aspirin until it is approved by . Job ID: [id number] [facility]
== END 2019-08-26 13:05 | disposition home or self-care (01) ==
LOC: SDC 08:42
PROVIDERS: ATTEND Urology
PROC: 0T7D8DZ Dilation of Urethra with Intraluminal Device, Via Natural or Artificial Opening Endoscopic (ICD-10-PCS; principal; 2019-08-26)
DX: N40.1 Benign prostatic hyperplasia with lower urinary tract symptoms (principal); R35.0 Frequency of micturition; I10 Essential (primary) hypertension; F32.9 Major depressive disorder, single episode, unspecified; E07.9 Disorder of thyroid, unspecified; Z79.82 Long term (current) use of aspirin; Z79.899 Other long term (current) drug therapy; Z86.73 Personal history of transient ischemic attack (TIA), and cerebral infarction without residual deficits
CPT/HCPCS: C1889; J1956; J2704

== ENCOUNTER 2019-09-11 05:39 | Outpatient (CLI) | payer BC, OTHER ==
[2019-09-11 12:51] LABS: #Eosinphils 0.2 thou/uL (0.0-0.7); #Lymphocytes 1.3 thou/uL (1.20-3.40); #Monocytes 0.4 thou/uL (0.11-0.59); #Neutrophils 3.3 thou/uL (1.40-6.50); %Basophils 0.4 % (0.0-1.0); %Eosinophils 3.2 % (0.0-10.0); %Lymphocytes 25.3 % (21.0-51.0); %Monocytes 8.2 % (0.0-10.0); %Neutrophils 62.9 % (42.0-75.0); Hemoglobin 12.9 g/dL (14.0-18.0); Mean Corpuscular HGB CONC 33.5 g/dL (32.0-36.0); Mean Corpuscular Hemoglobin 30.8 pg (27.0-31.0); Mean Corpuscular Volume 91.7 fL (78.0-98.0); Mean Platelet Volume 7.7 fL (7.4-10.4); Platelet Count 250 thou/uL (130-400); RBC Distribution Width 12.2 % (11.5-14.5); White Blood Cell (WBC) Count 5.2 thou/uL (4.8-10.8)
[2019-09-11 13:01] LABS: Anion Gap 12 mmol/L (10-20); BUN (Urea Nitrogen) 16 mg/dL (8.4-25.7); Calc. Creatinine Clearance 0 mL/min (70-130); Calcium 9.1 mg/dL (7.8-10.44); Carbon Dioxide 26 mmol/L (23-31); Chloride 104 mmol/L (98-107); Estimated GFR-MDRD 89; Glucose 131 mg/dL (80-115); Sodium 138 mmol/L (136-145)
[2019-09-12 12:09] LABS: SARS-CoV-2 MS2 Positive; SARS-CoV-2 N Gene Negative; SARS-CoV-2 S Gene Negative; SARS-CoV-2 orf1ab Negative
== END 2019-09-11 05:40 | disposition home or self-care (01) ==
LOC: LABBT 05:39
PROVIDERS: ATTEND Orthopaedic Surgery
DX: Z01.812 Encounter for preprocedural laboratory examination (principal); Z11.59 Encounter for screening for other viral diseases; G56.02 Carpal tunnel syndrome, left upper limb
CPT/HCPCS: 80048; 85025; 87635; U0003

== ENCOUNTER 2020-01-12 09:33 | Outpatient (CLI) | payer BC, MEDICARE ==
--- NOTE | 2020-01-12 10:13 | MMO ---
Bilateral MAMMO Bilat Diag [facility]NA[facility]. CLINICAL HISTORY: Patient is 69 years old and is seen for diagnostic exam and lump or thickening in the right breast. The patient has no family history of breast cancer. The patient has no personal history of cancer. The patient has a history of right Excisional Biopsy in 2017 - benign. VIEWS: The views performed were: bilateral craniocaudal with tomosynthesis; bilateral mediolateral oblique with tomosynthesis; bilateral mediolateral with tomosynthesis; and right mediolateral. FILMS COMPARED: The present examination has been compared to a prior imaging study performed at [facility] on 01/12/2020. This study has been interpreted with the assistance of computer-aided detection. MAMMOGRAM FINDINGS: There are scattered fibroglandular densities. Findings are consistent with gynecomastia (R>L). No mass on US in the right breast. There are no suspicious masses, suspicious calcifications, or new areas of architectural distortion. IMPRESSION: THERE IS NO MAMMOGRAPHIC EVIDENCE OF MALIGNANCY. THE RESULTS OF THIS EXAM WERE SENT TO THE PATIENT. ACR BI-RADS Category 2 - Benign finding MAMMOGRAPHY NOTE: 1. A negative mammogram report should not delay a biopsy if a dominant of clinically suspicious mass is present. 2. Approximately 10% to 15% of breast cancers are not detected by mammography. 3. Adenosis and dense breasts may obscure an underlying neoplasm. Reported by: AIDEN SCHWAB MD Electonically Signed: [id number]
--- NOTE | 2020-01-12 13:43 | ULT ---
RIGHT BREAST ULTRASOUND: Date: 01/12/2020 HISTORY: 69-year-old male with concern for right breast mass. FINDINGS: There is fibroglandular tissue at the region of palpable concern at the 12 o'clock position of the ri ght breast without evidence of mass. Correlation with mammograms demonstrates changes of gynecomastia. IMPRESSION: Gynecomastia without right breast mass. POS: OFF
== END 2020-01-12 09:34 | disposition home or self-care (01) ==
LOC: BICMAMMO 09:33
PROVIDERS: ATTEND Surgery
DX: N63.10 Unspecified lump in the right breast, unspecified quadrant (principal); N62 Hypertrophy of breast
CPT/HCPCS: 77066; G0279

== ENCOUNTER 2020-01-27 06:48 | Outpatient (CLI) | payer BC ==
[2020-01-27 12:03] LABS: #Eosinphils 0.1 10x3/uL (0.0-0.5); #Monocytes 0.4 10x3/uL (0.0-1.1); #Neutrophils 3.1 10x3/uL (1.5-8.4); %Basophils 0.8 % (0.0-2.0); %Eosinophils 2.7 % (0.0-6.0); %Lymphocytes 29.1 % (18.0-47.0); %Monocytes 7.8 % (0.0-10.0); %Neutrophils 59.4 % (40.0-75.0); Hemoglobin 13.3 g/dL (14.0-18.0); Mean Corpuscular HGB CONC 34.1 G/DL (32.0-36.0); Mean Corpuscular Hemoglobin 31.4 PG (27.0-33.0); Mean Platelet Volume 9.8 fl (7.4-10.4); Platelet Count 224 10x3/uL (130-400); Red Blood Cell (RBC) Count 4.24 10x6/uL (4.40-5.80); White Blood Cell (WBC) Count 5.3 10x3/uL (4.5-11.0)
[2020-01-27 12:17] LABS: ALT (SGPT) 23 U/L (8-55); AST (SGOT) 20 U/L (5-34); Albumin 4.2 g/dL (3.4-4.8); Alkaline Phosphatase 85 U/L (40-110); Anion Gap 15 mmol/L (10-20); BUN (Urea Nitrogen) 16 mg/dL (8.4-25.7); Bilirubin, Total 0.6 mg/dL (0.2-1.2); Calc. Creatinine Clearance 0 mL/min (70-130); Calcium 8.9 mg/dL (7.8-10.44); Carbon Dioxide 23 mmol/L (23-31); Chloride 105 mmol/L (98-107); Estimated GFR-MDRD 83; Globulin 2.8 g/dL (2.4-3.5); Glucose 155 mg/dL (83-110); Potassium 3.9 mmol/L (3.5-5.1); Sodium 139 mmol/L (136-145)
[2020-01-27 19:01] LABS: SARS-CoV-2 MS2 Positive; SARS-CoV-2 N Gene Negative; SARS-CoV-2 S Gene Negative; SARS-CoV-2 by NAA Not Detected (NotDetected); SARS-CoV-2 orf1ab Negative
--- NOTE | 2020-01-29 07:05 | EKG ---
Test Reason : Blood Pressure : / mmHG Vent. Rate : 073 BPM Atrial Rate : 073 BPM P-R Int : 202 ms QRS Dur : 126 ms QT Int : 390 ms P-R-T Axes : 054 -66 023 degrees QTc Int : 429 ms Normal sinus rhythm Right bundle branch block Left anterior fascicular block Bifascicular block Moderate voltage criteria for LVH, may be normal variant Cannot rule out Septal infarct , age undetermined Abnormal ECG No previous ECGs available Confirmed by OLEKSANDR BHATTI MD ([id number]) on 01/29/2020 7:05:12 AM Referred By: ZUNILDA Confirmed By:OLEKSANDR BHATTI MD
== END 2020-01-27 06:49 | disposition home or self-care (01) ==
LOC: LABBT 06:48
PROVIDERS: ATTEND Surgery
DX: Z01.818 Encounter for other preprocedural examination (principal); N62 Hypertrophy of breast; Z20.828 Contact with and (suspected) exposure to other viral communicable diseases
CPT/HCPCS: 80053; 85025; 87635; 93005; 93010; U0003

== ENCOUNTER 2020-02-01 05:55 | Day surgery (SDC) | payer BC ==
[2020-02-01] MEDS ORDERED: Bupivacaine 0.25% HCL 30 ML VIAL ONE (06:46)
[2020-02-01] MEDS ORDERED: Lidocaine 1% w/Epinephrine 1:100K 20 ML VIAL ONE (06:46)
[2020-02-01] MEDS ORDERED: Fentanyl 100 MCG/2 ML VIAL ONE (06:56)
--- NOTE | 2020-02-01 09:02 | OP ---
DATE OF PROCEDURE: 02/01/2020 PREOPERATIVE DIAGNOSIS: Painful gynecomastia. PROCEDURE PERFORMED: Right gynecomastectomy. INDICATIONS: A 69-year-old male who has been having increasing breast enlargement on the right that is very painful. Mammogram showed no suspicious areas. FINDINGS: An 8 x 8 cm x 3 cm breast, right chest wall. DESCRIPTION OF PROCEDURE: After informed consent was obtained, the patient was taken to the operating room and given general endotracheal anesthesia. He was placed in supine position. His chest was prepped and draped in usual fashion. Local anesthesia was infiltrated subcutaneously and deep, and a subareolar incision was performed. Subcu divided sharply. The breast tissue was divided underneath the areola leaving about 3/4 of a cm of tissue underneath the nipple and areolar complex. Then, the plane was developed sharply with electrocautery between the breast tissue and subcutaneous fat to the pectoralis muscle circumferentially and then removed off the pectoralis muscle, sent to Pathology for further analysis. Hemostasis achieved by electrocautery. The wound was irrigated. Hemostasis was assured. A 19-[place] Zealander drain was placed, brought out through a separate stab wound, placed in the inferior portion of the pocket. Subcu reapproximated with interrupted 3-0 Vicryl. Skin closed with interrupted 4-0 Rapide. Steri-Strips applied. Sterile bandage applied. The patient tolerated the procedure well, transferred to Recovery in good condition. Sponge and needle count verified correct x2. Job ID: [id number]
[2020-02-01] MEDS ORDERED: HYDROcodone/Acetaminophen 5/325 mg Tablet ONE (09:34)
[2020-02-01] MEDS ORDERED: Succinylcholine 200 MG/10 ml SYRINGE FS ONE (10:39)
[2020-02-01] MEDS ORDERED: Rocuronium Bromide 10 MG/ML (10ML VIAL) ONE (10:39)
[2020-02-01] MEDS ORDERED: Ondansetron PF 4 MG/2 ML Vial ONE (10:39)
[2020-02-01] MEDS ORDERED: PROPOFOL 200 MG/20 ML VIAL ONE (10:39)
[2020-02-01] MEDS ORDERED: Dexamethasone 20 MG/5 ML VIAL ONE (10:39)
[2020-02-01] MEDS ORDERED: ePHEDrine 50 MG/ML VIAL ONE (10:39)
[2020-02-01] MEDS ORDERED: Lidocaine 1% PF 5 ML VIAL ONE (10:39)
== END 2020-02-01 10:30 | disposition home or self-care (01) ==
LOC: SDC 05:55
PROVIDERS: ATTEND Surgery
PROC: 0HBT0ZZ Excision of Right Breast, Open Approach (ICD-10-PCS; principal; 2020-02-01)
DX: N62 Hypertrophy of breast (principal); E07.9 Disorder of thyroid, unspecified; N40.0 Benign prostatic hyperplasia without lower urinary tract symptoms; I10 Essential (primary) hypertension; M10.9 Gout, unspecified; Z79.899 Other long term (current) drug therapy; Z88.8 Allergy status to other drugs, medicaments and biological substances; Z86.73 Personal history of transient ischemic attack (TIA), and cerebral infarction without residual deficits; F32.9 Major depressive disorder, single episode, unspecified
CPT/HCPCS: 88305; J0690; J1100; J2405; J2704; J3010; J3490; S0020

== ENCOUNTER 2020-09-20 09:33 | Outpatient (CLI) | payer BC ==
[~2020-09-20 09:33] MED LIST: Magnevist 469MG/ML 20 ML VIAL ONE
[2020-09-20 10:37] LABS: Estimated GFR-MDRD - POC Greater than 90
== END 2020-09-20 09:34 | disposition home or self-care (01) ==
LOC: TBSIIMAG 09:33
PROVIDERS: ATTEND Urology
DX: R97.20 Elevated prostate specific antigen [PSA] (principal)
CPT/HCPCS: 72197; 82565